=== PATIENT | female | born 1960 | race Caucasian/White ===

== ENCOUNTER → 2017-10-30 09:36 | Outpatient (CLI) | payer MEDICARE, SELFPAY ==
[2017-10-30 10:18] LABS: Add Manual Diff / Slide Review NO; Basophils Percent Auto 0.6 % (0-2); Eosinophils Percent Auto 3.3 % (2-4); Hematocrit 46.3 % (36-46); Hemoglobin 15.3 g/dL (12.0-16.0); Lymphocytes Percent Auto 33.3 % (25-40); Mean Corpuscular HGB Conc 33.1 % (30-36); Mean Corpuscular Hemoglobin 32.6 PG (26-34); Mean Corpuscular Volume 98.6 fL (80-100); Monocytes Percent Auto 9.3 % (3-14); Neutrophils Absolute Auto 3600 /uL (3000-5900); Neutrophils Percent Auto 53.5 % (50-75); Platelet Count 228 X10^3/uL (150-400); Red Cell Distribution Width 12.8 % (11.6-14.8); White Blood Cell Count 6.7 X10^3/uL (4.5-11.0)
[2017-10-30 10:35] LABS: Alanine Aminotransferase 36 IU/L (9-52); Albumin 4.4 g/dL (3.5-5.0); Albumin Globulin Ratio 1.3 (1.0-2.8); Alkaline Phosphatase 57 U/L (38-126); Aspartate Aminotransferase 47 IU/L (14-36); BUN Creatinine Ratio 32.9 (6-22); Bilirubin Total 0.7 mg/dL (0.2-1.3); Blood Urea Nitrogen 23 mg/dL (7-17); Calcium 9.3 mg/dL (8.4-10.2); Carbon Dioxide 38 mmol/L (22-32); Chloride 103 mmol/L (98-107); Cholesterol 213 mg/dL (140-199); Estimated Glomerular Filt Rate > 60.0 mL/min (>60); Globulin 3.3 g/dL (1.7-4.1); Glucose 109 mg/dL (70-100); HDL Cholesterol 86 mg/dL (40-60); HEMOLYSIS < 15 (0-50); LDL Cholesterol Calculated 113 mg/dL (<100); Potassium 4.2 mmol/L (3.4-5.1); Sodium 144 mmol/L (137-145); Total Protein 7.7 g/dL (6.3-8.2); Triglycerides 70 mg/dL (35-150)
== END ==
PROVIDERS: Visit Provider Physician Assistant
DX: E78.5 Hyperlipidemia, unspecified (principal); R53.83 Other fatigue
CPT/HCPCS: 36415; 80053; 80061; 85025

== ENCOUNTER 2019-05-13 14:52 | Day surgery (SDC) | payer MEDICARE, SELFPAY ==
--- NOTE | 2019-05-13 | PATH_ITS ---
[facility] Accession Number: [id number] . 01 Material submitted: . colon - 15 CM COLON POLYPS . 01 Clinical history: . SCREENING COLONOSCOPY . 02 Diagnosis: Colon at 15 cm, Polyps: Hyperplastic polyp x2. V 05/15/2019 1008 Local . 02 Electronically signed: . David Shirley MD, PhD, Pathologist NPI- [id number] . 01 Gross description: . 15 CM COLON POLYPS: Received in formalin are 2 fragment(s) of mendoza, soft tissue measuring 0.2 x 0.2 x 0.2 cm to 0.3 x 0.3 x 0.3 cm submitted entirely in 1 cassette(s) /[facility] [place], [place] 05/14/2019 1942 Local . 02 Pathologist provided ICD-10: K63.5 . 02 CPT . 308338 Performed at: 01 [facility] [address], [place], [place] [id number] MD Giuliano Gutierrez MD Phone: [phone] Performed at: [address] [facility] [address] [place], [place] [id number] MD Zayra James MD Phone: [phone]
[2019-05-13] MEDS: SODIUM CHLORIDE 0.9% 1,000 ML 200 ML IV (15:12)
[2019-05-13 15:45] VITALS: BP 110/73; PULSE 71; RESP 16; TEMP 36.5; O2SAT 97; BMI 15.5
[2019-05-13] MEDS: fentaNYL 250 MCG/5 ML INJ IV (16:50)
[2019-05-13] MEDS: MIDAZOLAM 5 MG/5 ML VIAL IV (16:50)
--- NOTE | 2019-05-13 16:52 | PM.OP.ENDO ---
Operative Date/Time/Diagnoses Date of procedure: 05/13/19 Time of procedure: 16:52 Pre-op diagnosis: abdominal pain and constipation Post-op diagnosis: other (extensive diverticulosis, evidence of seveve chronic diverticulitis and chronic scarring of the sigmoid colon, small hyperplastic appearing rectal polyps) Procedure & Clinicians Study performed: Colonoscopy, polypectomy x3 with cold forceps Same procedure as scheduled: Yes Indications: Abdominal pain, constipation Surgeon: Marta Patel Procedure Notes SCOAP/Timeout: Performed Procedure in detail: The patient was brought to the room and placed in left lateral decubitus position with all bony prominences padded. A time-out was performed and then the patient was given procedural sedation starting with 2 mg of Versed and [100] mcg of fentanyl. Total of 4 mg Versed and 200 micro g of fentanyl were given for the entire procedure. Vitals were monitored throughout the procedure and remained stable. Once adequately sedated the procedure was begun. A rectal exam was performed revealing [no abnormalities]. The colonoscope was then introduced to the rectum and advanced to the cecum in the usual fashion. [The sigmoid colon was extremely tortuous and scarred with stenotic areas secondary to chronic diverticulosis and evidence of prior episodes of diverticulitis.] Getting to the cecum was quite difficult because of this. The cecum was identified by the appendiceal orifice, the mucosal tri-fold, and the ileocecal valve. The scope was then retracted while rotating side to side and examining each mucosal fold. [Small hyperplastic appearing polyps were found in the rectum, and will removed with cold forceps.] At the conclusion of the procedure retroflexion was performed and [small grade 1-2 internal hemorrhoids without stigmata of bleeding were seen]. The scope was then withdrawn from the rectum the procedure was concluded. The patient tolerated the procedure well and was transferred to the PACU in stable condition. Scope withdrawal time: 11 Sedation minutes: 25 Findings: diverticulitis (Chronic), diverticulosis and polyp (Several small polyps in the rectum at 15 cm) Specimen(s): other (Rectal polyp) Complications: none Post-procedure Recommendations: Colonscopy in 10 years (So long as pathology is non neoplastic) Plan for aftercare: Strongly recommend the patient use a fiber supplement such as Metamucil or Benefiber daily to reduce the risk of worsening diverticulosis and diverticulitis. She may at some point need a sigmoid colectomy for her severe scarring from diverticulitis. Follow up: as needed Disposition: PACU
[2019-05-13 16:57] VITALS: BP 119/73; PULSE 69; RESP 11; TEMP 36.3; O2SAT 94
[2019-05-13 17:02] VITALS: BP 122/74; PULSE 65; RESP 10; O2SAT 93
[2019-05-13 17:06] VITALS: BP 119/79; PULSE 65; RESP 12; O2SAT 93
[2019-05-13 17:12] VITALS: BP 133/82; PULSE 66; RESP 10; O2SAT 94
[2019-05-13 17:14] VITALS: BP 125/82; PULSE 66; RESP 12; TEMP 36.3; O2SAT 94
--- NOTE | 2019-05-16 06:29 | P.HP_ITS ---
History of Present Illness History of Present Illness Date Patient Seen: 05/13/19 Time Patient Seen: 15:30 Chief complaint: [id number] SCREENING COLONOSCOPY Narrative: This is a 58-year-old woman who has a history of chronic constipation, a colonoscopy in 2012 which showed diverticulosis and some polyps, and was recommended to have a follow-up colonoscopy within 3 years. She has recently been having some worsening abdominal pain, and is here for her follow- up colonoscopy. She denies any melena, hematochezia, or unexplained weight loss. ROS: Thirteen system review is otherwise negative other than as mentioned in scanned in questionnaire, and in HPI. PE: GENERAL: Well groomed and cooperative. Appears stated age. Answers questions promptly and appropriately. Vital signs noted. HENT: Normocephalic, atraumatic. Hearing intact. Oral mucosa is pink and moist. EYES: Conjunctiva pink, sclera white, no periorbital swelling. CARDIOVASCULAR: Regular rate. No pedal edema. RESPIRATORY: Non-tachypneic, breathing comfortably on room air. GASTROINTESTINAL: Abdomen soft and non-distended GENITALURINARY: No flank tenderness. MUSCULOSKELETAL: Equal tone and mass bilaterally. SKIN: Warm, dry, soft, appropriate color for ethnicity. No other lesions, rashes, or wounds. NEURO: Alert and Oriented X 3. No gross sensory deficits, or cognitive issues. PSYCH: Appropriate affect and mood. Patient History Medical History Arthritis (Acute) Asthma (Chronic Unknown) Cervical spine disease (Chronic Unknown) Colon polyps (Resolved Unknown) Constipation (Acute) Degenerative disc disease, lumbar (Chronic Unknown) Loose, teeth (Acute) Migraines (Chronic Unknown) Neck pain (Acute) Nephritis (Acute) Neuropathy (Acute) Osteoarthritis (Chronic Unknown) Restless leg syndrome (Chronic Unknown) Shoulder pain (Acute) UTI (urinary tract infection) (Acute) Wears glasses (Acute) Surgical History H/O arthroscopy of shoulder (Resolved ~1999) History of carpal tunnel repair Status post appendectomy Status post tubal ligation Family & Social History Family History Father No problems noted. Mother No problems noted. Social History: household members spouse Tobacco & Substance use: Tobacco type cigarettes Smoking Status Current every day smoker alcohol intake former Substance Use Type does not use Meds Home Medications and Allergies Home Medications Medication Instructions Recorded Confirmed Type [HERBAL LOTION] TOPICAL PRN PRN #0 06/28/16 03/11/19 History Disabled Parking Permit #1 ea 01/29/18 02/26/19 Rx ulmvkbj-rfhxymkbfnvzv-ivfngjry 250 1 tab PO Q4-6H PRN 12/11/18 05/13/19 History mg-250 mg-65 mg tablet gabapentin 300 mg capsule 600 mg PO HS #180 cap 12/11/18 05/13/19 Rx hydrocodone 5 mg-acetaminophen 325 0.5 - 1 tab PO QDAYP PRN #30 tab 12/11/18 05/13/19 Rx mg tablet sumatriptan succinate 50 mg tablet 50 mg PO Q2-4H PRN 12/11/18 05/13/19 History ondansetron HCl 8 mg tablet 8 mg PO BID PRN #60 tab 01/07/19 05/13/19 Rx albuterol sulfate 90 mcg/actuation 2 puff INHALATION Q4HP PRN #3 ea 02/25/19 05/13/19 Rx aerosol inhaler baclofen 10 mg tablet 10 mg PO QDAYP PRN #30 tab 04/21/19 05/13/19 Rx Allergies Allergy/AdvReac Type Severity Reaction Status Date / Time NSAIDS (Non-Steroidal AdvReac Intermediate UTI Verified 05/13/19 15:43 Anti-Inflamma [NSAIDS (NON-STEROIDAL ANTI-INFLAMMA] Exam Vital Signs (past 8 hours): Oxygen Delivery Method Room Air Assessment & Plan Assessment and plan (1) Personal history of colonic polyps: Current visit: No Status: Acute (2) Diverticulosis large intestine w/o perforation or abscess w/o bleeding: Problem details: Extensive per colonoscopy 05/13/19 Current visit: No Status: Chronic Assessment & Plan narrative: Risks and benefits of colonoscopy were discussed with the patient including risk of bleeding, perforation, need for additional procedures. The patient desires to proceed with her colonoscopy procedure. Time Spent With Patient Time with patient: 15-24 minutes Quality VTE Deep Vein Thrombosis/Pulmonary Embolism Present on Admission: No
== END 2019-05-13 17:38 | disposition home or self-care (01) ==
PROVIDERS: PCP Physician Assistant; Visit Provider Surgery
PROC: 0DJD8ZZ Inspection of Lower Intestinal Tract, Via Natural or Artificial Opening Endoscopic (ICD-10-PCS; CPT 45378; principal; 2019-05-13 16:00)
DX: R10.9 Unspecified abdominal pain (principal); K59.00 Constipation, unspecified; F17.210 Nicotine dependence, cigarettes, uncomplicated; K57.30 Diverticulosis of large intestine without perforation or abscess without bleeding; Z86.010 Personal history of colon polyps; K64.0 First degree hemorrhoids; K63.5 Polyp of colon
CPT/HCPCS: 45380; 99152; 99153; J2250; J3010

== ENCOUNTER → 2019-05-24 08:25 | Outpatient (CLI) | payer MEDICARE, SELFPAY ==
[2019-05-24 08:36] LABS: Bacteria Urine None Seen
[2019-05-24 09:08] LABS: Add Manual Diff / Slide Review NO; Basophils Absolute Auto 0 /uL (0-100); Basophils Percent Auto 0.7 % (0-2); Eosinophils Absolute Auto 200 /uL (0-450); Eosinophils Percent Auto 2.5 % (2-4); Hemoglobin 14.2 g/dL (12.0-16.0); Lymphocytes Absolute Auto 1900 /uL (1100-4500); Lymphocytes Percent Auto 30.5 % (25-40); Mean Corpuscular HGB Conc 33.7 % (30-36); Mean Corpuscular Hemoglobin 33.1 PG (26-34); Mean Corpuscular Volume 98.3 fL (80-100); Monocytes Absolute Auto 500 /uL (0-900); Monocytes Percent Auto 8.8 % (3-14); Neutrophils Absolute Auto 3600 /uL (1500-7000); Neutrophils Percent Auto 57.5 % (50-75); Platelet Count 209 X10^3/uL (150-400); Red Blood Cell Count 4.28 X10^6/uL (4.0-5.2); Red Cell Distribution Width 12.6 % (11.6-14.8); White Blood Cell Count 6.2 X10^3/uL (4.5-11.0)
[2019-05-24 09:10] LABS: Appearance Urine UA CLEAR; Bilirubin Urine UA NEGATIVE (NEGATIVE); Color Urine UA YELLOW; Glucose Urine UA NEGATIVE (Negative); Ketones Urine UA NEGATIVE (NEGATIVE); Leukocyte Esterase Urine UA 1+ (NEGATIVE); Nitrite Urine UA NEGATIVE (Negative); Occult Blood Urine UA 1+ (Negative); Protein Urine UA NEGATIVE (Negative); Specific Gravity Urine UA 1.015 (1.000-1.035); Urobilinogen Urine UA 0.2 E.U./dL (0.2)
[2019-05-24 09:25] LABS: Culture Indicated Urine Specimen Cultured; RBC Urine 1-5/HPF (0-5/HPF); Squamous Epithelial Cell Urine 0-1 /HPF (0-5/HPF); WBC Urine 1-5/HPF (0-5/HPF)
[2019-05-24 09:50] LABS: Alanine Aminotransferase 19 IU/L (<35); Albumin 4.2 g/dL (3.5-5.0); Albumin Globulin Ratio 1.4 (1.0-2.8); Alkaline Phosphatase 65 U/L (38-126); Aspartate Aminotransferase 35 IU/L (14-36); Bilirubin Total 0.4 mg/dL (0.2-1.3); Blood Urea Nitrogen 21 mg/dL (7-17); Calcium 9.3 mg/dL (8.4-10.2); Carbon Dioxide 32 mmol/L (22-32); Chloride 101 mmol/L (98-107); Cholesterol 177 mg/dL (140-199); Estimated Glomerular Filt Rate > 60.0 mL/min (>60); Glucose 102 mg/dL (70-100); HDL Cholesterol 71 mg/dL (40-60); HEMOLYSIS < 15 (0-50); LDL Cholesterol Calculated 95 mg/dL (<100); Potassium 3.9 mmol/L (3.4-5.1); Sodium 143 mmol/L (137-145); Total Protein 7.2 g/dL (6.3-8.2); Triglycerides 53 mg/dL (35-150)
== END ==
PROVIDERS: PCP Physician Assistant; Referring Provider Physician Assistant; Visit Provider Physician Assistant
DX: E78.5 Hyperlipidemia, unspecified (principal); G43.909 Migraine, unspecified, not intractable, without status migrainosus; R20.2 Paresthesia of skin; R53.83 Other fatigue; M54.5 Low back pain
CPT/HCPCS: 36415; 80053; 80061; 81001; 85025; 87086

== ENCOUNTER → 2019-09-20 13:48 | Outpatient (ROUT) | payer MEDICARE, SELFPAY ==
[2019-09-22 16:35] LABS: COVID19 Sendout Not Detected (Not Detected)
== END ==
PROVIDERS: PCP Internal Medicine; Visit Provider Physician Assistant
DX: J45.909 Unspecified asthma, uncomplicated (principal); R05 Cough; R50.9 Fever, unspecified; R51 Headache
CPT/HCPCS: 87635

== ENCOUNTER → 2019-09-29 11:26 | Outpatient (CLI) | payer MEDICARE, SELFPAY ==
--- NOTE | 2019-09-29 11:30 | DI.RAD.S_ITS ---
PROCEDURE: XR CERVICAL SPINE 4V OR 5V INDICATIONS: neck pain TECHNIQUE: 5 total views of the cervical spine were acquired, including bilateral oblique views. COMPARISON: [facility], , C-SPINE WITHOUT CONTRAST, 07/17/2016, 13:25. FINDINGS: Bones: No fractures or dislocations to the T2 level. Oblique images demonstrate no bony foraminal stenoses. There is mild retrolisthesis seen at the C5-C6 level. Moderate disc space narrowing is seen at C5-C6, with moderate to severe disc space narrowing at C6-C7. Endplate irregularity and sclerosis are seen, which are most prominent at C6-C7. There is reversal of the normal cervical lordosis seen, with the apex at this level. On oblique images, there is mild neural foraminal narrowing seen on the right at C3-C4 and C6-C7. On the left, there is mild neural foraminal narrowing seen at C2-C3 and C5-C6. Soft tissues: No prevertebral soft tissue swelling. The visualized lung apices are unremarkable. The visualized lung apices are unremarkable. IMPRESSION: Cervical spine degenerative changes are seen, which are most prominent at the C6-C7 level. Reversal of the normal cervical lordosis is seen. This is commonly observed in patients with muscular spasm. Dictated by: Aly Gonzalez M.D. on 09/29/2019 at 12:00 Approved by: Aly Gonzalez M.D. on 09/29/2019 at 12:03
== END ==
PROVIDERS: PCP Internal Medicine; Referring Provider Physical Medicine & Rehabilitation; Visit Provider Physical Medicine & Rehabilitation
DX: M54.2 Cervicalgia (principal); M47.22 Other spondylosis with radiculopathy, cervical region
CPT/HCPCS: 72050

== ENCOUNTER → 2019-10-14 17:28 | Outpatient (CLI) | payer MEDICARE, SELFPAY ==
--- NOTE | 2019-10-14 17:29 | DI.MRI.S_ITS ---
PROCEDURE: MR CERVICAL SPINE WO CON INDICATIONS: Cervical stenosis TECHNIQUE: Noncontrast sagittal T1 spin echo and T2 fast spin echo, sagittal STIR, foraminal oblique sagittal T2 fast spin echo, and axial gradient echo or T2 fast spin echo through the cervical spine. COMPARISON: None. FINDINGS: Image quality: Excellent. Alignment and Curvature: There is a straightening and bursal of the usual cervical lordosis. Approximately 2 mm anterolisthesis of C4 on C5 and 4 mm anterolisthesis of C5 on C6. Bone Marrow: There is no suspicious focus of marrow signal abnormality or bone marrow edema. Mild discogenic marrow signal changes are present at the endplates from C4-C5 through C6-C7. Spinal Cord: Visualized spinal cord has normal size and signal. No cerebellar tonsillar herniation. Paraspinous Soft Tissues: No paravertebral masses. Prevertebral soft tissues are normal in thickness. C2-C3: No spinal canal or neural foraminal stenosis. C3-C4: No spinal canal stenosis. Facet and vertebral hypertrophy contribute to mild right neural foraminal narrowing. C4-C5: Posterior disc osteophyte complex flattens the ventral thecal sac without spinal canal stenosis or mass effect upon the cord. Facet and uncovertebral hypertrophy contribute to mild bilateral neural foraminal stenosis. C5-C6: Posterior disc osteophyte complex flattens and indents the ventral cord. No cord signal abnormality. Facet uncovertebral hypertrophy contribute to mild left greater than right neural foraminal stenosis. C6-C7: Posterior discussion a complex likely flattens the ventral cord. Facet uncovertebral hypertrophy contribute to moderate left and mild right neural foraminal stenosis. C7-T1: No spinal canal or neural foraminal stenosis. IMPRESSION: Generative changes in the mid cervical spine, most pronounced at C5-C6 and C6-C7. Dictated by: Andres Alvarado M.D. on 10/15/2019 at 8:45 Approved by: Andres Alvarado M.D. on 10/15/2019 at 8:48
== END ==
PROVIDERS: PCP Internal Medicine; Referring Provider Physical Medicine & Rehabilitation; Visit Provider Physical Medicine & Rehabilitation
DX: M48.02 Spinal stenosis, cervical region (principal); M47.812 Spondylosis without myelopathy or radiculopathy, cervical region
CPT/HCPCS: 72141

== ENCOUNTER → 2019-12-29 09:48 | Outpatient (CLI) | payer MEDICARE, SELFPAY ==
[2019-12-30 17:13] LABS: COVID19 Sendout Not Detected (Not Detect)
== END ==
PROVIDERS: PCP Internal Medicine; Visit Provider Nurse Practitioner
DX: Z11.59 Encounter for screening for other viral diseases (principal)
CPT/HCPCS: 87635

== ENCOUNTER 2020-01-01 09:29 | Outpatient (CLI) | payer MEDICARE, SELFPAY ==
[2020-01-01] VITALS (8 sets, daily range): BP systolic 112–174; BP diastolic 74–95; PULSE 73–88; RESP 11–21; TEMP 36.3; O2SAT 91–98
--- NOTE | 2020-01-01 09:33 | DI.RAD.S_ITS ---
PROCEDURE: PAIN C/T INTERLAMINAR INJECT INDICATIONS: SPINAL STENOSIS COMPARISON: None. FINDINGS: Fluoroscopic spot filming was performed to verify placement of spinal needles at the C6-C7 level(s), as labeled on the films. Appropriate location(s) of the needle tip(s) was confirmed by injection of iodinated contrast. Dictated by: Fidencio Gomez M.D. on 01/01/2020 at 13:04 Approved by: Fidencio Gomez M.D. on 01/01/2020 at 13:08
[2020-01-01] MEDS: MIDAZOLAM 5 MG/5 ML VIAL IV (10:37)
[2020-01-01] MEDS: fentaNYL 100 MCG/2 ML INJ 50 MCG IV (10:37)
[2020-01-01] MEDS: BUPIVACAINE 0.25% (PF) VIAL 2 ML INJ (10:44)
[2020-01-01] MEDS: DEXAMETHASONE 10 MG/ML VIAL 30 MG INJ (10:45)
[2020-01-01] MEDS: IOPAMIDOL 15 ML VIAL 3 ML INJ (10:45)
--- NOTE | 2020-01-01 10:52 | P.PCN_ITS ---
Date/Time/Diagnoses Date of procedure: 01/01/20 Time of procedure: 10:52 Pre-procedure diagnosis: 1. CERVICAL STENOSIS, 2. CERVICAL HNP WITH UPPER EXTREMITY RADICULAR FEATURES Post-procedure diagnosis: same Procedure Notes Procedure: 1. FLUORSCOPICALLY GUIDED CONTRAST CONTROLLED INTERLAMINAR EPIDURAL STEROID INJECTION - C6/7 TL NABEEL Indications: Fany is referred by Dr. Torres for treatment of Cervical HNP with Upper Extremity Paresthesias. Physician: Allen Rg Total Fluoroscopy time (seconds): 23 Total sedation minutes: 12 Complications: none Procedure in detail & Post-procedure care: FINDINGS Cervical Stenosis due to disc deterioration and nerve root irritation and nerve root irritation DESCRIPTION OF PROCEDURE Fluoroscopically guided, contrast-controlled C6/7 translaminar epidural steroid injection with conscious sedation. Following review of allergy and review of potential side effects and complications, including, but not necessarily limited to, infection, allergic reaction, local tissue breakdown, temporary as well as permanent nerve injury, stroke, paralysis, and possible , the patient indicated that patient understood and agreed to proceed. An informed consent document was signed by the patient, witnessed by a nurse, and placed in the patient's chart. Additionally, other treatment options including modalities, medications, and physical therapy were reviewed with the patient. After review of previous anaesthesic history and IV conscious sedation the patient was deemed safe to proceed with today?s procedure with IV conscious sedation as ASA class II designation. Safety time-out was performed to confirm patient ID, procedure to be performed and site of procedure. IV sedation was accomplished with a combination of 2mg of Versed and 50mcg of Fentanyl administered by the RN after DO order, titrated to patient comfort during the course of the procedure while the patient remained responsive to all verbal commands. In the prone position, following sterile prep and drape of the cervical region, the C6/7 translaminar space was identified fluoroscopically. The skin was anesthetized via a 25-gauge 1.5-inch needle with 1% lidocaine solution. At this point, a 25-gauge, 2.5-inch short bevel spinal needle was atraumatically introduced and advanced under fluoroscopic guidance into epidural space at the C6/7 translaminar space. Depth was confirmed on lateral view. Radiological data, including multiple fluoroscopic views of the cervical spine, reveal a spinal needle at the C6/7 translaminar space. Lateral views then show placement of the needle in the epidural space. Subsequent views show contrast material flowing superiorly and inferiorly in the epidural space. DSA fluoroscopy with live contrast injection, once again, confirmed no vascular or intrathecal uptake. At this point, using loss of resistance technique with saline and air, the epidural space was entered. Following negative aspiration, injection of appr oximately 1.5 cc of Isovue-200 with live fluoroscopy in the AP view confirmed epidural flow in the epidural space without vascular or intrathecal uptake observed. Subsequently, a test dose of 1 cc of 1% lidocaine solution was injected and patient was observed for two minutes without signs or symptoms of complications, including abdominal pain, shortness of breath, bilateral upper or lower extremity weakness, nausea and vomiting, prior to steroid injection. At this point, 2cc or 20mg of dexamethasone was then injected without incident. The patient tolerated the procedure well without signs or symptoms of complications prior to being transferred to the recovery area for further monitoring, The patient was then transferred to the recovery area where they were observed for an appropriate period of time after the injection. The patient reported a VAS score of 6 prior to the procedure and a post-procedure VAS of 0. POST OP INSTRUCTIONS The patient was provided a Pain Log to continue to record their response to the target-specific procedure prior to follow-up visit with the referring provider. Additionally, specific post-injection care instructions and a contact number to our office were provided if concerns arise regarding possible complications associated with the procedure are suspected.
== END 2020-01-01 11:22 | disposition home or self-care (01) ==
PROVIDERS: PCP Internal Medicine; Referring Provider Physical Medicine & Rehabilitation; Visit Provider Physical Medicine & Rehabilitation
DX: M48.02 Spinal stenosis, cervical region (principal); M50.123 Cervical disc disorder at C6-C7 level with radiculopathy
CPT/HCPCS: 62321; 99152; J1100; J2250; J3010

== ENCOUNTER → 2020-03-29 09:22 | Outpatient (CLI) | payer MEDICARE, SELFPAY ==
[2020-03-29 11:10] LABS: COVID19 -Nasal RAPID Negative (Negative)
== END ==
PROVIDERS: PCP Internal Medicine; Visit Provider Physician Assistant
DX: Z11.59 Encounter for screening for other viral diseases (principal)
CPT/HCPCS: 87635

== ENCOUNTER 2020-03-30 09:10 | Outpatient (CLI) | payer MEDICARE, SELFPAY ==
[2020-03-30] VITALS (8 sets, daily range): BP systolic 143–187; BP diastolic 74–98; PULSE 62–72; RESP 12–22; TEMP 36.4; O2SAT 92–100
--- NOTE | 2020-03-30 09:12 | DI.RAD.S_ITS ---
PROCEDURE: PAIN C/T FACET INJ/BLK 1ST L INDICATIONS: SPINAL STENOSIS COMPARISON: [facility], XA, PAIN C/T INTERLAMINAR INJECT, 01/01/2020, 10:41. [facility], MR, MR CERVICAL SPINE WO CON, 10/14/2019, 17:49. [facility], CR, XR CERVICAL SPINE 4V OR 5V, 09/29/2019, 11:23. [facility], MR, C-SPINE WITHOUT CONTRAST, 07/17/2016, 13:25. FINDINGS: Fluoroscopic spot filming was performed to verify placement of spinal needles at the left C5-C6 and C6-C7 facet level(s). Appropriate location(s) of the needle tip(s) was confirmed by injection of iodinated contrast. IMPRESSION: Fluoroscopy for pain management. Dictated by: Nicolas Santamaria M.D. on 03/30/2020 at 11:06 Approved by: Nicolas Santamaria M.D. on 03/30/2020 at 11:07
[2020-03-30] MEDS: fentaNYL 100 MCG/2 ML INJ 50 MCG IV (10:21)
[2020-03-30] MEDS: MIDAZOLAM 5 MG/5 ML VIAL IV (10:21)
[2020-03-30] MEDS: BUPIVACAINE 0.5% (PF) VIAL 5 ML INJ (10:27)
[2020-03-30] MEDS: DEXAMETHASONE 10 MG/ML VIAL 20 MG INJ (10:27)
[2020-03-30] MEDS: IOPAMIDOL 15 ML VIAL 3 ML INJ (10:28)
--- NOTE | 2020-03-30 10:35 | P.PCN_ITS ---
Date/Time/Diagnoses Date of procedure: 03/30/20 Time of procedure: 10:35 Pre-procedure diagnosis: 1. FACET ARTHROPATHY 2. AXIAL NECK PAIN Post-procedure diagnosis: same Procedure Notes Procedure: 1. FLUOROSCOPICALLY GUIDED, CONTRAST-CONTROLLED LEFT C5/6 AND C6/7 FACET JOINT INJECTIONS WITH CONSCIOUS SEDATION. Indications: Fany is referred by Dr. Torres for treatment of Axial Neck Pain Physician: Allen Rg Total Fluoroscopy time (seconds): 6 Total sedation minutes: 12 Complications: none Procedure in detail & Post-procedure care: DESCRIPTION OF PROCEDURE Fluoroscopically guided, contrast-controlled left C5/6 and C6/7 facet joint injections with conscious sedation. Following review of allergy and review of potential side effects and complications, including, but not necessarily limited to, infection, allergic reaction, local tissue breakdown, stroke, temporary or permanent nerve injury and paralysis, the patient indicated that the patient understood and agreed to proceed. An informed consent document was signed by the patient, witnessed by a nurse, and placed in the patient's chart. Additionally, other treatment options including medications, modalities, and physical therapy were reviewed with the patient. After review of previous anaesthesic history and IV conscious sedation the patient was deemed safe to proceed with today?s procedure with IV conscious sedation as ASA class II designation. Safety time-out was performed to confirm patient ID, procedure to be performed and site of procedure. IV sedation was accomplished with a combination of 2mg of Versed and 50mcg of Fentanyl was administered by the RN after DO order, titrated to patient comfort during the course of the procedure while the patient remained responsive to all verbal commands In the prone position, following sterile prep and drape of the cervical spine region, the posterior aspect of the left C5/6 and C6/7 facet joints were identified fluoroscopically. The skin was anesthetized via a 25-gauge 1.5-inch needle with 1% lidocaine solution into the corresponding facet joints. At this point, a 25-gauge 2.5-inch spinal needle was atraumatically introduced and advanced under fluoroscopic guidance into the corresponding facet joints. Following negative aspiration, injections of approximately 0.2cc of Isovue 200 confirmed interarticular placement without vascular uptake. At this point, a total of 1cc including 0.5cc or 5mg of dexamethasone combined with 0.5cc of 1% lidocaine solution was injected without complication into each of the corresponding facet joints. The procedure tolerated the procedure well without signs or symptoms of complications prior to transfer to the recovery area continued monitoring without incident. The patient was then transferred to the recovery area where they were observed for an appropriate period of time after the injection. The patient reported a VAS score of 7 prior to the procedure and a post- procedure VAS of 1. POST OP INSTRUCTIONS They were provided a Pain Log to continue to record their response to the target-specific procedure prior to their follow-up visit with their referring physician. Additionally, specific post-injection care instructions and a contact number to our office were provided if concerns arise regarding possible complications associated with the procedure are suspected.
== END 2020-03-30 10:51 | disposition home or self-care (01) ==
LOC: RAD 09:10
PROVIDERS: PCP Internal Medicine; Referring Provider Physical Medicine & Rehabilitation; Visit Provider Physical Medicine & Rehabilitation
DX: M47.812 Spondylosis without myelopathy or radiculopathy, cervical region (principal); M54.2 Cervicalgia
CPT/HCPCS: 64490; 64491; 99152; J1100; J2250; J3010

== ENCOUNTER → 2020-11-10 08:50 | Outpatient (CLI) | payer MEDICARE, SELFPAY ==
[2020-11-10 09:59] LABS: Add Manual Diff / Slide Review NO; Basophils Absolute Auto 0 /uL (0-100); Basophils Percent Auto 0.7 % (0-2); Eosinophils Absolute Auto 200 /uL (0-450); Eosinophils Percent Auto 3.5 % (2-4); Hematocrit 44.4 % (36-46); Hemoglobin 14.7 g/dL (12.0-16.0); Lymphocytes Absolute Auto 2200 /uL (1100-4500); Lymphocytes Percent Auto 41.5 % (25-40); Mean Corpuscular HGB Conc 33.2 % (30-36); Mean Corpuscular Volume 99.4 fL (80-100); Monocytes Absolute Auto 500 /uL (0-900); Monocytes Percent Auto 9.6 % (3-14); Neutrophils Absolute Auto 2400 /uL (1500-7000); Neutrophils Percent Auto 44.7 % (50-75); Platelet Count 197 X10^3/uL (150-400); Red Blood Cell Count 4.47 X10^6/uL (4.0-5.2); Red Cell Distribution Width 12.7 % (11.6-14.8); White Blood Cell Count 5.3 X10^3/uL (4.5-11.0)
[2020-11-10 10:08] LABS: Alanine Aminotransferase 26 IU/L (<35); Albumin 3.9 g/dL (3.5-5.0); Albumin Globulin Ratio 1.3 (1.0-2.8); Alkaline Phosphatase 52 U/L (38-126); Aspartate Aminotransferase 39 IU/L (14-36); BUN Creatinine Ratio 29.2 (6-22); Bilirubin Total 0.4 mg/dL (0.2-1.3); Blood Urea Nitrogen 19 mg/dL (7-17); Calcium 8.8 mg/dL (8.4-10.2); Carbon Dioxide 35 mmol/L (22-32); Chloride 103 mmol/L (98-107); Cholesterol 198 mg/dL (140-199); Estimated Glomerular Filt Rate > 60.0 mL/min (>60); Globulin 3.1 g/dL (1.7-4.1); Glucose 95 mg/dL (80-110); HDL Cholesterol 76 mg/dL (40-60); HEMOLYSIS < 15 (0-50); LDL Cholesterol Calculated 108 mg/dL (<100); Potassium 3.9 mmol/L (3.4-5.1); Sodium 142 mmol/L (137-145); Triglycerides 69 mg/dL (35-150)
[2020-11-10 11:01] LABS: TSH w/ Reflex to FT4 4.45 uIU/mL (0.47-4.68)
== END ==
PROVIDERS: PCP Internal Medicine; Referring Provider Internal Medicine; Visit Provider Internal Medicine
DX: E46 Unspecified protein-calorie malnutrition (principal); I10 Essential (primary) hypertension; J45.909 Unspecified asthma, uncomplicated; Z13.220 Encounter for screening for lipoid disorders
CPT/HCPCS: 36415; 80053; 80061; 84443; 85025

== ENCOUNTER → 2020-11-24 11:52 | Outpatient (CLI) | payer MEDICARE, SELFPAY ==
--- NOTE | 2020-11-24 12:03 | DIET.PN ---
Dietary Progress Note Assessment: 60y [address] visit for Protein Calorie Malnutrition (BMI 15.3) per recommendation from her PCP. 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 Weight and Health Hx: Pt has never had to watch weight or worry about calorie counting, was able to maintain healthy weight without too much concern. Pt has a few aunts who are thin like her. Pt lost significant weight 2y ago after she and her tried an elimination type diet for longevity. Pt did lose weight, but did not. This along with dental issues, reduced appetite, and severe diverticulosis have been limitations to her ability to regain weight to a healthy BMI. 04/2019 colonoscopy showing:extensive diverticulosis, evidence of severe chronic diverticulitis and chronic scarring of the sigmoid colon with reccs to have sigmoid colon resection if continued issue. Pt had 2 partials installed this spring so having easier time chewing foods. HT: 5'6 WT: 95# UBW: 120-130# BMI: 15.3 (severe) Labs: BUN 19 H dinner last night: mashed potatoes, teriyaki chicken, and a cookie with 8oz metamucil had to skip breakfast this morning because was in pain metamucil taken every day is helpful if not good enough, takes Dulcolax Usual Day: B: Activia low fat yogurt and applesauce or oatmeal or fruit smoothie c 2c tea L: hummus c [facility] low fat chips or pb sandwich c blueberries tries to have water bottle D: prefers meat and potatoes, is trying to lose weight so not eating red meat some snacks: cereal in evening A2 whole milk uses cannabis in vaporizer to stimulate appetite in evening, helps Foods she does not tolerate: steak, roast, corn, whole nuts and seeds Nutrition Diagnosis: Severe Chronic Protein Calorie Malnutrition r/t low appetite and difficulty eating aeb BMI 15.3 x2y, pt had dentition issues and large intestine issues limiting intake, pt uses cannabis as appetite stimulant, intake several low fat foods during day. Interventions: 1. Discussed and educated pt on increased protein and healthy fat intake to support healthy weight gain into a less severe BMI. Collaborated c pt on usual intake and modifying to promote weight gain. Pt will switch to full fat yogurt. Provided smoothie recipe formula, pt will alter smoothie to incorporate more high kcal/high pro ingredients (nut butter, full fat yogurt, ground seeds). Pt will eliminate low-fat, low-kcal versions of foods for original strength. Pt will liberally use olive oil and avocado oil in cooking and dressing foods. Pt will eat 3 meals and 2 snacks daily. Pt will increase protein serving by 1oz at each meal. 2. Discussed all strategies and interventions with pt barriers and health conditions in mind. Monitoring/Evaluations: phone check in x1mo to assess progress as pt has limited ability to pay for nutrition service out of pocket.
== END ==
PROVIDERS: PCP Internal Medicine; Referring Provider Internal Medicine; Visit Provider Internal Medicine
DX: E43 Unspecified severe protein-calorie malnutrition (principal); Z68.1 Body mass index [BMI] 19.9 or less, adult
CPT/HCPCS: 97802

== ENCOUNTER → 2021-01-27 10:04 | Outpatient (CLI) | payer MEDICARE, SELFPAY ==
[2021-01-27 10:49] LABS: COVID19 -Nasal RAPID Negative (Negative)
== END ==
PROVIDERS: PCP Internal Medicine; Visit Provider Internal Medicine
DX: Z20.822 Contact with and (suspected) exposure to COVID-19 (principal); J02.9 Acute pharyngitis, unspecified
CPT/HCPCS: 87635

== ENCOUNTER → 2022-05-04 12:11 | Outpatient (CLI) | payer MEDICARE, SELFPAY ==
[2022-05-04 13:08] LABS: Appearance Urine UA CLEAR; Bilirubin Urine UA NEGATIVE (NEGATIVE); Color Urine UA ORANGE; Glucose Urine UA TRACE g/dL (Negative); Ketones Urine UA NEGATIVE (NEGATIVE); Leukocyte Esterase Urine UA 1+ (NEGATIVE); Nitrite Urine UA POSITIVE (Negative); Occult Blood Urine UA 2+ (Negative); Protein Urine UA 2+ (Negative)
[2022-05-04 13:22] LABS: Bacteria Urine Moderate (10-30); Culture Indicated Urine Specimen Cultured; RBC Urine 1-5/HPF (0-5/HPF); Squamous Epithelial Cell Urine 1-5 /HPF (0-5/HPF); WBC Urine 10-30/HPF (0-5/HPF)
== END ==
PROVIDERS: PCP Internal Medicine; Referring Provider Internal Medicine; Visit Provider Internal Medicine
DX: R30.0 Dysuria (principal); R35.0 Frequency of micturition; R39.9 Unspecified symptoms and signs involving the genitourinary system
CPT/HCPCS: 81001; 87077; 87086; 87186

== ENCOUNTER → 2022-08-10 12:26 | Outpatient (CLI) | payer MEDICARE, SELFPAY ==
[2022-08-10 12:53] LABS: Alanine Aminotransferase 23 IU/L (<35); Albumin 4.3 g/dL (3.5-5.0); Albumin Globulin Ratio 1.2 (1.0-2.8); Alkaline Phosphatase 45 U/L (38-126); Aspartate Aminotransferase 31 IU/L (14-36); BUN Creatinine Ratio 27.7 (6-22); Bilirubin Total 0.4 mg/dL (0.2-1.3); Blood Urea Nitrogen 18 mg/dL (7-17); Carbon Dioxide 37 mmol/L (22-32); Chloride 99 mmol/L (98-107); Estimated Glomerular Filt Rate > 60 mL/min (>60); Globulin 3.6 g/dL (1.7-4.1); Glucose 117 mg/dL (80-110); HEMOLYSIS < 15 (0-50); Potassium 4.4 mmol/L (3.4-5.1); Sodium 140 mmol/L (137-145); Total Protein 7.9 g/dL (6.3-8.2)
== END ==
PROVIDERS: PCP Internal Medicine; Referring Provider Internal Medicine; Visit Provider Internal Medicine
DX: I10 Essential (primary) hypertension (principal); J45.20 Mild intermittent asthma, uncomplicated
CPT/HCPCS: 36415; 80053

== ENCOUNTER → 2022-10-20 11:46 | Outpatient (CLI) | payer MEDICARE, SELFPAY ==
--- NOTE | 2022-10-25 08:48 | PM.PFT.1 ---
Pulmonary Function Test Referral & Results Date Patient Seen: 10/20/22 Results: The spirometry demonstrates an FVC of 1.66 L which is 47% of predicted. The FEV1 was measured at 0.73 L which is 27% of predicted. The FEV1/FVC ratio was 44 which is 57% of predicted. Following the administration of bronchodilator there was a 60% improvement in FEV1 and a 211% improvement in FEF 25-75%. Lung volumes show an SVC of 2.61 L which is 81% of predicted. The diffusing capacity was measured at 12.07 which is 44% of predicted. No hemoglobin value was provided, so no correction for potential anemia could be made, if appropriate. The maximum voluntary ventilation was severely reduced Interpretation: This study demonstrates severe obstructive lung disease with FEV1 of less than 1 L. there is evidence of significant benefit following bronchodilator as noted above Lung volumes are probably normal There is a moderate reduction diffusing capacity suggesting the presence of disease at the capillary alveolar level
== END ==
PROVIDERS: PCP Family Medicine; Referring Provider Family Medicine; Visit Provider Family Medicine
DX: R06.02 Shortness of breath (principal); F17.200 Nicotine dependence, unspecified, uncomplicated; J98.8 Other specified respiratory disorders
CPT/HCPCS: 94060; 94726; 94729

== ENCOUNTER → 2023-01-19 09:00 | Outpatient (CLI) | payer MEDICARE, SELFPAY ==
[2023-01-19 09:34] LABS: Add Manual Diff / Slide Review NO; Basophils Absolute Auto 0 /uL (0-100); Basophils Percent Auto 0.7 % (0-2); Eosinophils Absolute Auto 200 /uL (0-450); Eosinophils Percent Auto 2.9 % (2-4); Hematocrit 45.7 % (36-46); Hemoglobin 15.3 g/dL (12.0-16.0); Lymphocytes Absolute Auto 2700 /uL (1100-4500); Lymphocytes Percent Auto 41.2 % (25-40); Mean Corpuscular HGB Conc 33.5 % (30-36); Mean Corpuscular Hemoglobin 33.1 PG (26-34); Mean Corpuscular Volume 98.9 fL (80-100); Monocytes Absolute Auto 600 /uL (0-900); Monocytes Percent Auto 8.6 % (3-14); Neutrophils Absolute Auto 3000 /uL (1500-7000); Neutrophils Percent Auto 46.6 % (50-75); Platelet Count 224 X10^3/uL (150-400); Red Blood Cell Count 4.62 X10^6/uL (4.0-5.2); Red Cell Distribution Width 13.3 % (11.6-14.8); White Blood Cell Count 6.5 X10^3/uL (4.5-11.0)
[2023-01-19 09:50] LABS: Alanine Aminotransferase 27 IU/L (<35); Albumin 4.4 g/dL (3.5-5.0); Albumin Globulin Ratio 1.3 (1.0-2.8); Alkaline Phosphatase 53 U/L (38-126); Aspartate Aminotransferase 34 IU/L (14-36); BUN Creatinine Ratio 28.6 (6-22); Bilirubin Total 0.5 mg/dL (0.2-1.3); Blood Urea Nitrogen 20 mg/dL (7-17); Calcium 9.3 mg/dL (8.4-10.2); Carbon Dioxide 35 mmol/L (22-32); Chloride 98 mmol/L (98-107); Cholesterol 231 mg/dL (140-199); Estimated Glomerular Filt Rate > 60 mL/min (>60); Globulin 3.4 g/dL (1.7-4.1); Glucose 113 mg/dL (80-110); HDL Cholesterol 86 mg/dL (40-60); HEMOLYSIS < 15 (0-50); LDL Cholesterol Calculated 125 mg/dL (<100); Sodium 139 mmol/L (137-145); Total Protein 7.8 g/dL (6.3-8.2); Triglycerides 99 mg/dL (35-150)
== END ==
PROVIDERS: PCP Family Medicine; Referring Provider Family Medicine; Visit Provider Family Medicine
DX: F17.200 Nicotine dependence, unspecified, uncomplicated (principal); I10 Essential (primary) hypertension; K62.5 Hemorrhage of anus and rectum
CPT/HCPCS: 36415; 80053; 80061; 85025

== ENCOUNTER 2023-09-13 09:02 | Inpatient (IN) | payer OTHER, SELFPAY ==
[2023-09-13] VITALS (84 sets, daily range): BP systolic 90–182; BP diastolic 56–98; PULSE 60–80; RESP 11–44; TEMP 32–38.1; O2SAT 42–99; BMI 16.2
--- NOTE | 2023-09-13 09:15 | ED.NEUROSD ---
HPI - Neuro Symptoms/Deficit General Chief Complaint: Shortness of Breath/Dyspnea Stated Complaint: stroke symptoms per pt Time Seen by Provider: 09/13/23 09:14 History of Present Illness HPI Narrative: Patient is a 62-year-old female history of emphysema has stopped smoking presents today with bilateral hand weakness. However she is found to be hypoxic with a O2 60%. According to PCP no on August 26 she started using trilogy and waiting for insurance to approve portable oxygen. She presents today with like hand twitching weakness. states that her color started changing she has a little bit blue last night and this morning. She is found to have O2 of 60% on room air. After reviewing records PCP office shows that she was 79% on room air on August 26 and 84% on August 22 she was 90% on 3 L nasal cannula. Patient reports that she is just waiting for her ox oxygen. She denies any sort of chest pain or shortness of breath. She gets very fatigued and tired. There was concern of stroke this morning with a hand weakness has been reports that maybe she had some facial droop as well. Otherwise has no complaints. She reports that she went for an outpatient EKG at [facility] yesterday. Related Data Home Medications Medication Instructions Recorded Confirmed [HERBAL LOTION] topical PRN PRN ##0 06/16/19 08/27/23 acetaminophen 325 mg tablet 325 mg PO ONCE PRN 06/15/22 08/27/23 (Tylenol) Previous Rx's Medication Instructions Recorded baclofen 10 mg tablet 10 mg PO BID for muscle spasm #180 04/04/23 tabs inhalational spacing device #1 ea 05/15/23 (BreatheRite MDI Spacer) acetaminophen 300 mg-codeine 15 mg 1 tab PO Q8H PRN pain #30 tabs 05/25/23 tablet gabapentin 300 mg capsule 600 mg (2 x 300 mg) PO HS #180 caps 06/13/23 (Neurontin) Ventolin HFA 90 mcg/actuation 2 puff inhalation Q4-6H PRN for 08/14/23 aerosol inhaler (albuterol sulfate) wheezing #36 grams fluticasone fur. 100 mcg-umeclid 1 inh inhalation DAILY #60 ea 08/23/23 62.5 mcg-vilant 25 mcg inhalat.powder (Trelegy Ellipta) oxygen concentrator #1 ea 08/23/23 portable oxygen concentrator #1 ea 08/27/23 Allergies Allergy/AdvReac Type Severity Reaction Status Date / Time diclofenac AdvReac Intermediate Reaction Verified 09/13/23 09:26 as soon as applied. Rash/Burning Sensation NSAIDS (Non-Steroidal AdvReac Intermediate UTI Verified 09/13/23 09:26 Anti-Inflamma [NSAIDS (NON-STEROIDAL ANTI-INFLAMMA] Patient History Medical History (Updated 09/13/23 @ 13:08 by Florence Holland DO) Encounter for initial annual wellness visit (AWV) in Medicare patient COVID-19 Malnutrition Cervical radiculopathy Facet arthropathy, cervical Cervical stenosis of spinal canal Loose, teeth Wears glasses Neuropathy Nephritis Constipation Neck pain Shoulder pain Arthritis Restless leg syndrome (Unknown) Osteoarthritis (Unknown) Degenerative disc disease, lumbar (Unknown) Migraines (Unknown) Asthma (Unknown) Cervical spine disease (Unknown) Surgical History H/O arthroscopy of shoulder (~1999) Status post appendectomy History of carpal tunnel repair Status post tubal ligation Family History Father No problems noted. Mother No problems noted. Social History household members: spouse Smoking Status: Former smoker (2 Cigarettes since Covid 05/2022. ) Tobacco: How many years used: 40 second hand exposure: No alcohol intake: former substance use type: marijuana Smoking Status: Former smoker (2 Cigarettes since Covid 05/2022. ) Substance Use Type: does not use Exam Initial Vital Signs Initial Vital Signs: Vital Signs Temperature 97.9 F 09/13/23 09:05 Pulse Rate 80 09/13/23 09:05 Respiratory Rate 22 09/13/23 09:05 Blood Pressure 139/84 09/13/23 09:05 Pulse Oximetry 60 L 09/13/23 09:05 Oxygen Delivery Method Room Air 09/13/23 09:05 GENERAL: Alert pleasant 62-year-old slightly [place] HEENT: Head atraumatic,EOMI, pupils reactive, face symmetric, moist mucous membranes CARDIOVASCULAR: Regular rate and rhythm without murmurs, rubs or gallops. RESPIRATORY: Decreased breath sounds bilaterally no significant respiratory distress speaks in full sentences ABDOMEN: Soft, nontender. Normoactive bowel sounds all 4 quadrants. No guarding or rebound. EXTREMITIES: Normal range of motion, no clubbing or edema. Neurovascularly intact NEUROLOGICAL: Alert and oriented x4.Normal gait and speech. Cranial nerves II through XII grossly intact. SKIN: Warm, dry, no laceration, no petechiae, no rashes or lesions. Procedures Intubation Time out performed: Yes sedative: other paralytic: Rocuronium Laryngoscope: other (glide scope) ET Tube Size: 7.5 Tube Secured Depth (cm): 21 Tube Secured Location: teeth Tube Placement Confirmation: Visualized tube passing through cords, Equal breath sounds bilaterally, No breath sounds over epigastrium, Confirmation by capnometry and Chest Xray Patient Tolerated Procedure: Well and No complications Intubation Complications: none Course Orders Ordered: ED Orders 09/13/23 10:05 CT abdomen pelvis w con Stat CT angio chest PE protocol Stat US abdomen limited Stat 09/13/23 10:32 High flow/High humidity nasal STAT 09/13/23 11:06 ABG [Arterial Blood Gas] Stat 09/13/23 11:15 BiPAP Ventilatory Support RT PROTOCOL 09/13/23 12:03 Urine Microscopic Stat 09/13/23 12:05 CMP [Comprehensive Metabolic Panel] Stat Trop I [Troponin I] Stat 09/13/23 12:35 ABG [Arterial Blood Gas] Stat Acetaminophen (Acetaminophen 325 Mg Tablet) 650 mg PO Q6H PRN PRN Reason: Fever/Mild Pain (1-3) Enoxaparin Sodium (Enoxaparin 40 Mg/0.4 Ml Syringe) 40 mg SUBCUT DAILY REYNA Propofol (Propofol) 1,000 mg in 100 mls @ 1.334 mls/hr IV TITRATE REYNA; Protocol Last Titration: 09/13/23 16:04 Dose: 17 mcg/kg/min, 4.534 mls/hr Documented By: Titration: 09/13/23 15:49 Dose: 10.12 mcg/kg/min, 2.7 mls/hr Documented By: Admin: 09/13/23 15:20 Dose: 5 mcg/kg/min, 1.334 mls/hr Documented By: RLS Fentanyl 1,000 mcg/ Sodium (Chloride) 250 mls @ 7.779 mls/hr IV TITRATE REYNA; Protocol Last Admin: 09/13/23 15:46 Dose: Not Given Documented By: RLS Naloxone HCl (Naloxone 0.4 Mg/Ml Vial) 0.2 mg IV Q2MIN PRN PRN Reason: Opiate Reversal Ondansetron HCl (Ondansetron 4 Mg/2 Ml Inj) 4 mg IV Q8HR PRN PRN Reason: Nausea And Vomiting Discontinued Medications Albuterol/Ipratropium (Albuterol/Ipratropium 3 Ml Ampul) 3 ml INH NOW ONE Stop: 09/13/23 09:29 Last Admin: 09/13/23 09:31 Dose: 3 ml Documented By: BERHANE Furosemide (Furosemide 40 Mg/4 Ml Vial) 20 mg IV NOW ONE Stop: 09/13/23 11:14 Last Admin: 09/13/23 11:19 Dose: 20 mg Documented By: ESTIVEN Fentanyl 1,000 mcg/ Dextrose 250 mls @ 7.779 mls/hr IV TITRATE REYNA; Protocol Last Titration: 09/13/23 16:24 Dose: 0.9 mcg/kg/hr, 10 mls/hr Documented By: Admin: 09/13/23 15:38 Dose: 0.7 mcg/kg/hr, 7.779 mls/hr Documented By: PORSHA Piperacillin Sod/Tazobactam (Sod 4.5 gm/ Sodium Chloride) 100 mls @ 200 mls/hr IV NOW ONE Stop: 09/13/23 16:15 Last Infusion: 09/13/23 17:36 Dose: Infused Documented By: Admin: 09/13/23 16:34 Dose: 200 mls/hr Documented By: PORSHA Methylprednisolone (Methylprednisolone 125 Mg/2 Ml Vial) 125 mg IV NOW ONE Stop: 09/13/23 16:15 Last Admin: 09/13/23 16:35 Dose: 125 mg Documented By: PORSHA Propofol (Propofol 200 Mg/20 Ml Vial) 100 mg IV NOW ONE Stop: 09/13/23 15:02 Last Admin: 09/13/23 15:01 Dose: 100 mg Documented By: PORSHA Rocuronium [place] (Rocuronium 50 Mg/5 Ml Inj) 5 mg IV NOW ONE Stop: 09/13/23 15:02 Last Admin: 09/13/23 15:01 Dose: 5 mg Documented By: PORSHA Vital Signs Vital signs: Vital Signs - 8 hr 09/13/23 11:00 09/13/23 11:00 09/13/23 11:15 Pulse Rate 74 76 Respiratory Rate 14 16 Blood Pressure 174/95 H Pulse Oximetry 86 L 81 L Oxygen Delivery Method Fraction of Inspired Oxygen 09/13/23 11:30 09/13/23 11:34 09/13/23 11:34 Pulse Rate 73 71 Respiratory Rate 18 20 Blood Pressure 173/96 H Pulse Oximetry 93 94 Oxygen Delivery Method BiPAP Fraction of Inspired Oxygen 09/13/23 11:37 09/13/23 11:45 09/13/23 12:00 Pulse Rate 71 69 Respiratory Rate 21 24 Blood Pressure 173/96 H Pulse Oximetry 92 Oxygen Delivery Method Fraction of Inspired Oxygen 09/13/23 12:06 09/13/23 12:06 09/13/23 12:15 Pulse Rate 68 69 Respiratory Rate 18 21 Blood Pressure 167/94 H Pulse Oximetry 86 L 86 L Oxygen Delivery Method Fraction of Inspired Oxygen 09/13/23 12:30 09/13/23 12:30 09/13/23 12:45 Pulse Rate 70 69 Respiratory Rate 24 16 Blood Pressure 169/92 H Pulse Oximetry 84 L 81 L Oxygen Delivery Method BiPAP Fraction of Inspired Oxygen 09/13/23 13:00 Pulse Rate 69 Respiratory Rate 22 Blood Pressure Pulse Oximetry 86 L Oxygen Delivery Method Fraction of Inspired Oxygen MDM - Neuro Symptoms/Deficit Lab Data 09/13/23 09:23 09/13/23 12:05 Labs: Lab Results 09/13/23 09/13/23 09/13/23 Range/Units 09:23 11:06 12:03 WBC 6.9 (4.5-11.0) X10^3/uL RBC 5.41 H (4.0-5.2) X10^6/uL Hgb 16.9 H (12.0-16.0) g/dL Hct 53.9 H (36-46) % MCV 99.7 (80-100) fL MCH 31.3 (26-34) PG MCHC 31.4 (30-36) % RDW 14.2 (11.6-14.8) % Plt Count 177 (150-400) X10^3/uL Neut % (Auto) 87.1 H (50-75) % Lymph % (Auto) 3.3 L (25-40) % [place] % (Auto) 9.5 (3-14) % Eos % (Auto) 0.0 L (2-4) % Baso % (Auto) 0.1 (0-2) % Neut # (Auto) 6000 (0985-1519) /uL Lymph # (Auto) 200 L (3213-9375) /uL [place] # (Auto) 700 (0-900) /uL Eos # (Auto) 0 (0-450) /uL Baso # (Auto) 0 (0-100) /uL PT 18.4 H (9.4-12.5) SECONDS INR 1.6 H (0.9-1.3) APTT 30 (25.1-36.5) SECONDS D-Dimer 28360 H (<500) ng/ml ABG Sample Site Right brachial ABG pH 7.23 L* (7.35-7.45) ABG pCO2 90.5 H* (35-45) mmHg ABG pO2 73 L (80-100) mmHg ABG HCO3 38 H (23-27) mmol/L ABG Total CO2 41 H (23-27) mmol/L ABG O2 Saturation 90 L (95-100) % ABG Base Excess 11.0 H (-2-3) mmol/L FiO2 60 Sodium 136 L (137-145) mmol/L Potassium 5.3 H (3.4-5.1) mmol/L Chloride 94 L (98-107) mmol/L Carbon Dioxide 38 H (22-32) mmol/L BUN 36 H (7-17) mg/dL Creatinine 1.15 H (0.52-1.04) mg/dL Estimated GFR 54 L (>60) mL/min BUN/Creatinine Ratio 31.3 H (6-22) Glucose 131 H (80-110) mg/dL Calcium 8.2 L (8.4-10.2) mg/dL Total Bilirubin 1.5 H (0.2-1.3) mg/dL AST 1283 H (14-36) IU/L ALT 1046 H (<35) IU/L Alkaline Phosphatase 101 (38-126) U/L Total Creatine Kinase 102 (30-135) U/L Troponin I 0.130 H* (0.01-0.034) ng/mL NT-Pro-B Natriuret Pep 96806 H (<125) pg/mL Total Protein 6.5 (6.3-8.2) g/dL Albumin 3.7 (3.5-5.0) g/dL Globulin 2.8 (1.7-4.1) g/dL Albumin/Globulin Ratio 1.3 (1.0-2.8) Lipase 23 (23-300) U/L Procalcitonin 0.546 H (<0.5) ng/mL Urine RBC 0-1/hpf (0-5/HPF) Urine WBC None seen (0-5/HPF) Ur Squamous Epith Cells None seen (0-5/HPF) Urine Bacteria None seen (None) Hyaline Casts 1-5/lpf (None) Ur Culture Indicated? Cult not indicated Vol Urine Centrifuged 10ml (spun) Acetaminophen < 10 (10-30) ug/mL 09/13/23 09/13/23 Range/Units 12:05 12:35 WBC (4.5-11.0) X10^3/uL RBC (4.0-5.2) X10^6/uL Hgb (12.0-16.0) g/dL Hct (36-46) % MCV (80-100) fL MCH (26-34) PG MCHC (30-36) % RDW (11.6-14.8) % Plt Count (150-400) X10^3/uL Neut % (Auto) (50-75) % Lymph % (Auto) (25-40) % [place] % (Auto) (3-14) % Eos % (Auto) (2-4) % Baso % (Auto) (0-2) % Neut # (Auto) (7249-5980) /uL Lymph # (Auto) (9565-9066) /uL [place] # (Auto) (0-900) /uL Eos # (Auto) (0-450) /uL Baso # (Auto) (0-100) /uL PT (9.4-12.5) SECONDS INR (0.9-1.3) APTT (25.1-36.5) SECONDS D-Dimer (<500) ng/ml ABG Sample Site Right radial ABG pH 7.29 L* (7.35-7.45) ABG pCO2 80.2 H* (35-45) mmHg ABG pO2 53 L (80-100) mmHg ABG HCO3 39 H (23-27) mmol/L ABG Total CO2 41 H (23-27) mmol/L ABG O2 Saturation 81 L* (95-100) % ABG Base Excess 12.0 H (-2-3) mmol/L FiO2 30 Sodium 136 L (137-145) mmol/L Potassium 4.4 (3.4-5.1) mmol/L Chloride 96 L (98-107) mmol/L Carbon Dioxide 36 H (22-32) mmol/L BUN 35 H (7-17) mg/dL Creatinine 0.86 (0.52-1.04) mg/dL Estimated GFR > 60 (>60) mL/min BUN/Creatinine Ratio 40.7 H (6-22) Glucose 116 H (80-110) mg/dL Calcium 7.3 L (8.4-10.2) mg/dL Total Bilirubin 1.1 (0.2-1.3) mg/dL AST 1856 H (14-36) IU/L ALT 1501 H (<35) IU/L Alkaline Phosphatase 79 (38-126) U/L Total Creatine Kinase (30-135) U/L Troponin I 0.139 H* (0.01-0.034) ng/mL NT-Pro-B Natriuret Pep (<125) pg/mL Total Protein 5.7 L (6.3-8.2) g/dL Albumin 3.1 L (3.5-5.0) g/dL Globulin 2.6 (1.7-4.1) g/dL Albumin/Globulin Ratio 1.2 (1.0-2.8) Lipase (23-300) U/L Procalcitonin (<0.5) ng/mL Urine RBC (0-5/HPF) Urine WBC (0-5/HPF) Ur Squamous Epith Cells (0-5/HPF) Urine Bacteria (None) Hyaline Casts (None) Ur Culture Indicated? Vol Urine Centrifuged Acetaminophen (10-30) ug/mL Urine Dip Bedside Urine Glucose Negative Bedside Urine Bilirubin - Negative Bedside Urine Ketone - Negative Urine Specific [place] 1.020 Bedside Urine Occult Blood +/- Bedside Urine pH 6.0 Bedside Urine Protein +/- 15 Bedside Urine Urobilinogen - Negative Bedside Urine Nitrite - Negative Bedside Urine Leukocytes - Negative Esterase Imaging Data CT scan - chest: Radiologist's Impression: PROCEDURE: CT ANGIO CHEST PE PROTOCOL INDICATIONS: hypoxia TECHNIQUE: After the administration of intravenous contrast, 2 mm thick sections acquired from the pulmonary apices to the posterior costophrenic angles. 3-dimensional maximum intensity projection (MIP) coronal and sagittal reformats were then acquired through the thorax. For radiation dose reduction, the following was used: automated exposure control, adjustment of mA and/or kV according to patient size. COMPARISON: None. FINDINGS: Image quality: Diagnostic. Pulmonary arteries: Pulmonary arteries are dilated, and demonstrate no intraluminal filling defects to suggest central pulmonary embolism. Lower Neck: No enlarged lymph nodes. Thyroid: No thyroid nodules which require sonographic follow up, per consensus guidelines. Axillae: No enlarged lymph nodes. Chest Wall: Anasarca. Bones: Unremarkable. Lungs and Pleura: Moderate right and small left pleural effusion with bibasilar atelectasis. Mild centrilobular emphysema and bronchial thickening. Superimposed mild smooth interstitial thickening. Heart: Heart size is enlarged. No pericardial effusion. Moderate LAD calcifications. Thoracic Vessels: No aortic aneurysm. Mediastinum and Jeri: No enlarged lymph nodes. Esophagus: No wall thickening. No hiatal hernia. Upper Abdomen: Separately dictated. IMPRESSION: No pulmonary embolus. Moderate right and small left pleural effusions and mild pulmonary edema. Cardiomegaly. Pulmonary hypertension. Dictated by: Rodrigo Ga M.D. on 09/13/2023 at 10:37 CT scan - abdomen/pelvis: Radiologist's Impression: PROCEDURE: CT ABDOMEN PELVIS W CON INDICATIONS: elevated liver enzymes and hypoxia TECHNIQUE: After the administration of intravenous contrast, axial sections acquired from the lung bases to the pubic symphysis. Coronal and sagittal reformats were performed. For radiation dose reduction, the following was used: automated exposure control, adjustment of mA and/or kV according to patient size. COMPARISON: None. FINDINGS: Image quality: Diagnostic. Lower Chest: Cardiomegaly. Moderate right and small left pleural effusions with bibasilar atelectasis. ABDOMEN: Liver: Heterogeneous attenuation of the liver. Gallbladder: Diffuse gallbladder wall thickening without radiopaque stones. Biliary ducts: No biliary dilation. Pancreas: No ductal dilation. Spleen: Size is within normal limits. Adrenal Glands: No adrenal nodules. Kidneys and Ureters: No hydronephrosis. No solid mass. No complex renal cystic lesion which requires follow up. Stomach and Bowel: Normal colonic caliber, without significant wall thickening. Colonic diverticulosis without evidence of diverticulitis. Peritoneum: Moderate volume ascites. Ventral Wall: No significant ventral hernia. Abdominal Nodes: No retroperitoneal or mesenteric adenopathy by size criteria. Vessels: Aorta and inferior vena cava are normal in size. PELVIS: Pelvic Organs: Unremarkable. Bladder: No bladder wall thickening, accounting for underdistention. Pelvic Nodes: Dilated adnexal vasculature. Miscellaneous: No inguinal hernias are seen. Bones: No aggressive osseous abnormality. Degenerative disc disease of the lumbar spine. Grade 1 anterolisthesis of L4 on L5 secondary to facet arthrosis. IMPRESSION: Cardiomegaly with heterogeneous enhancement of the liver, diffuse wall thickening of the gallbladder and third-spacing of fluids (moderate volume ascites and small to moderate pleural effusions). Findings suggest cardiac hepatopathy. Acute hepatitis not excluded but less likely. Dictated by: Rodrigo Ga M.D. on 09/13/2023 at 10:31 US - abdomen: Radiologist's Impression: PROCEDURE: US ABDOMEN LIMITED INDICATIONS: elevated liver enzyemes TECHNIQUE: Real-time scanning was performed of the abdominal and retroperitoneal organs, with image documentation. COMPARISON: [facility], CT, CT ABDOMEN PELVIS W CON, 09/13/2023, 10:19. FINDINGS: Liver: Heterogeneous echogenicity. No significant portal edema. Gallbladder: No gallstones. Diffuse but mild wall thickening. Negative sonographic Mittal sign. Biliary ducts: Intrahepatic bile ducts are non-dilated. Extrahepatic bile duct caliber measures 6 mm. Normal is 6-7 mm or less in diameter, or 10 mm or less post-cholecystectomy. Pancreas: Visualized portions of the pancreas are sonographically normal. Miscellaneous: Small volume ascites. Right greater than left pleural effusions. IMPRESSION: Heterogeneous liver echogenicity, nonspecific. Please see same day chest CT and abdominal CT for further discussion. Chest x-ray: Radiologist's Impression: PROCEDURE: XR CHEST 1V INDICATIONS: intubated TECHNIQUE: One view of the chest was acquired. COMPARISON: [facility], CR, XR CHEST 1V, 09/13/2023, 9:56. FINDINGS: Surgical changes and devices: Endotracheal tube tip 7 cm above the coretta. Multiple overlying leads and wires Lungs and pleura: Bibasilar pleural effusions greater on the right, similar prior exam. No pneumothorax. Mediastinum: Mediastinal contours appear normal. Heart size is normal. Bones and chest wall: No suspicious bony lesions. Overlying soft tissues appear unremarkable. IMPRESSION: Endotracheal tube tip 7 cm above the coretta. Bibasilar pleural effusions greater on the right. No pneumothorax. Approved by: Uriel Wagner M.D. on 09/13/2023 at 15:16 ECG Data Attestation: I personally reviewed and interpreted this ECG as follows: Prior ECG tracings: not available for review Interpretation: Sinus rhythm rate 74 OR interval 130 QRS 86 QTC 419 low voltage no significant ST changes no priors to compare. MDM Narrative Medical decision making narrative: Patient 62-year/old female history of emphysema chronic hypoxia awaiting oxygen approval for home use presents today with increasing weakness concern for CVA. Patient has a NIH stroke scale 0. I suspect that neurologic symptoms are secondary to severe hypoxia. O2 improves with nasal cannula. Color improved she actually no significant respiratory distress she has some slight decreased breath sounds but no significant wheezing or rales. [facility] CC: Weakness Complicating co-morbidities: Chronic hypoxia Corroborating data: Data collected from: Medical records reviewed: PCP notes recent echocardiogram [facility] done on 09/11/2023. Which does show pulmonary hypertension cor pulmonale trace pericardial effusion Differential considered: Exam documented above, pertinent findings include: Cyanosis is without significant respiratory distress some decreased breath sounds on the right side no significant rales or rhonchi Lab Test results independently reviewed as above. Pertinent findings: Independently reviewed EKG as above Imaging studies independently reviewed: Chest x-ray number small loculated pleural effusion CT chest angio no pulmonary embolism right-sided moderate pleural effusion, left-sided small mild pulmonary edema CT abdomen pelvis cardiomegaly with heterogeneous enhancement of wood or diffuse wall thickening of gallbladder and 3rd spacing of fluids moderate volume ascites suggest cardiac hepatopathy acute hepatitis not excluded but less likely Ultrasound right upper quadrant heterogeneous liver Repeat chest x-ray shows ET tube above the coretta Consultations: Dr. Benitez on-call cardiology states that this is right ventricular failure cor pulmonale, troponin is likely demand ischemia no need to transfer for cardiac catheterization 1614 Dr. Holman decision present for anticipation, fortunately intubation went smoothly without any sort of complications 1614 Dr. Stinson, distribution a class lineman at [facility] updated patient's symptoms test results and accepts patient Treatments: BiPAP Lasix Re-evaluations: Patient initially was put on nasal cannula and high-flow O2 sat remained 88% or below. However patient became more unresponsive. She was then changed over to BiPAP. She initially was talking and improved quite a bit while on BiPAP however she then got somnolent. Required sternal rubs but frequently did wake Initial ABG Off bipap 7.23/90.5/73/38/ Put on Bi pap with settings 16/8 --7.29/80.2/53/39 Bi pap settings changes 22/8 ----7.32/84.6/67/43 (becoming more solumulent) Discussion: Patient has chronic hypoxic respiratory failure. She is found to have mildly elevated troponins which are thought to be from secondary to demand ischemia from chronic ongoing hypoxia. However liver enzymes are also significantly elevated in the 1000 levels. On exam she is not tender in her right upper quadrant she has a normal bilirubin. Ultrasound and CT do not show any evidence of gallbladder pathology. CT does suggest a cardiac hepatology. Tylenol level was ordered and is negative no reports of Tylenol ingestion. Possible hepatitis as well she is nontender. Although this could be secondary to significant cardiac issue. Initially cardiology did not recommend transferring recommended diuresis. Hospitalist Dr. Gonzalez in ED to see and evaluate patient initially accepted patient however patient continues to fail BiPAP. He is spoke with on-call distribution a class lineman who agreed with intubation and transfer. Long discussion about intubation she continues to fall asleep on BiPAP but then can be sternal rubbed. However due to ongoing issues with definitely benefit from intubation and be more easily managed. With at bedside while on BiPAP she was able to write down. She does not want long-term trach and PEG but is agreeable to short-term intubation. At this time she remains a full code. Significant concern for alexis arrest during intubation. Anesthesia was called to bedside she fortunately was an easy intubation I did intubate her without any sort of issue. Blood cultures are pending she is given dose of Zosyn. She has not requiring any sort of vasopressor support she was never hypotensive or tachycardic. Surprisingly when she 1st arrived she did not show any significant sign of respiratory distress. But slightly cyanotic. Critical Care Time Critical Care Time Critical Care Time: Yes Total Critical Care Time: 80 Attestation: The high probability of a clinically significant, sudden or life threatening deterioration of the [cardiovascular] system(s) required my full and direct attention, intervention and personal management. The aggregate critical care time was 80 minutes. This time is in addition to time spent performing reported procedures but includes the following: [x] Data Review and interpretation [x] Patient assessment and monitoring of vital signs [x] Documentation [x] Medication orders and management Discharge Plan Departure Patient Disposition: [facility] Clinical Impression: Right heart failure, Demand ischemia, Pleural effusion
[2023-09-13] MEDS: ALBUTEROL/IPRATROPIUM 3 ML AMPUL INH (09:31)
--- NOTE | 2023-09-13 09:34 | DI.RAD.S_ITS ---
PROCEDURE: XR CHEST 1V INDICATIONS: short of breath TECHNIQUE: One view of the chest was acquired. COMPARISON: [facility], CHEST 2 VIEW, 09/26/2010, 11:46. [facility], CHEST 2 VIEW, 01/09/2008, 9:19. FINDINGS: Surgical changes and devices: None. Lungs and pleura: Small loculated pleural effusions with bibasilar atelectasis/consolidation. Mediastinum: Mediastinal contours appear normal. Heart size is likely enlarged. Bones and chest wall: No suspicious bony lesions. Overlying soft tissues appear unremarkable. IMPRESSION: Small loculated pleural effusions with bibasilar atelectasis/consolidation. Dictated by: Rodrigo Ga M.D. on 09/13/2023 at 10:19 Approved by: Rodrigo Ga M.D. on 09/13/2023 at 10:20
[2023-09-13 09:41] LABS: INR 1.6 (0.9-1.3); Prothrombin Time 18.4 SECONDS (9.4-12.5)
[2023-09-13 09:43] LABS: Add Manual Diff / Slide Review NO; Basophils Absolute Auto 0 /uL (0-100); Basophils Percent Auto 0.1 % (0-2); Eosinophils Absolute Auto 0 /uL (0-450); Hematocrit 53.9 % (36-46); Hemoglobin 16.9 g/dL (12.0-16.0); Lymphocytes Absolute Auto 200 /uL (1100-4500); Lymphocytes Percent Auto 3.3 % (25-40); Mean Corpuscular HGB Conc 31.4 % (30-36); Mean Corpuscular Hemoglobin 31.3 PG (26-34); Mean Corpuscular Volume 99.7 fL (80-100); Monocytes Absolute Auto 700 /uL (0-900); Monocytes Percent Auto 9.5 % (3-14); Neutrophils Absolute Auto 6000 /uL (1500-7000); Neutrophils Percent Auto 87.1 % (50-75); Platelet Count 177 X10^3/uL (150-400); Red Blood Cell Count 5.41 X10^6/uL (4.0-5.2); Red Cell Distribution Width 14.2 % (11.6-14.8); White Blood Cell Count 6.9 X10^3/uL (4.5-11.0)
[2023-09-13 09:44] LABS: PTT Partial Thromboplastin Tim 30 SECONDS (25.1-36.5)
[2023-09-13 09:47] LABS: Albumin 3.7 g/dL (3.5-5.0); Albumin Globulin Ratio 1.3 (1.0-2.8); Alkaline Phosphatase 101 U/L (38-126); BUN Creatinine Ratio 31.3 (6-22); Bilirubin Total 1.5 mg/dL (0.2-1.3); Blood Urea Nitrogen 36 mg/dL (7-17); Calcium 8.2 mg/dL (8.4-10.2); Carbon Dioxide 38 mmol/L (22-32); Chloride 94 mmol/L (98-107); Creatine Kinase 102 U/L (30-135); Estimated Glomerular Filt Rate 54 mL/min (>60); Globulin 2.8 g/dL (1.7-4.1); Glucose 131 mg/dL (80-110); Lipase 23 U/L (23-300); Potassium 5.3 mmol/L (3.4-5.1); Sodium 136 mmol/L (137-145); Total Protein 6.5 g/dL (6.3-8.2)
[2023-09-13 09:55] LABS: Aspartate Aminotransferase 1283 IU/L (14-36); HEMOLYSIS 27 (0-50)
[2023-09-13 09:56] LABS: Alanine Aminotransferase 1046 IU/L (<35)
[2023-09-13 10:04] LABS: D Dimer 18005 ng/ml (<500); Procalcitonin 0.546 ng/mL (<0.5)
--- NOTE | 2023-09-13 10:05 | DI.CT.S_ITS ---
PROCEDURE: CT ANGIO CHEST PE PROTOCOL INDICATIONS: hypoxia TECHNIQUE: After the administration of intravenous contrast, 2 mm thick sections acquired from the pulmonary apices to the posterior costophrenic angles. 3-dimensional maximum intensity projection (MIP) coronal and sagittal reformats were then acquired through the thorax. For radiation dose reduction, the following was used: automated exposure control, adjustment of mA and/or kV according to patient size. COMPARISON: None. FINDINGS: Image quality: Diagnostic. Pulmonary arteries: Pulmonary arteries are dilated, and demonstrate no intraluminal filling defects to suggest central pulmonary embolism. Lower Neck: No enlarged lymph nodes. Thyroid: No thyroid nodules which require sonographic follow up, per consensus guidelines. Axillae: No enlarged lymph nodes. Chest Wall: Anasarca. Bones: Unremarkable. Lungs and Pleura: Moderate right and small left pleural effusion with bibasilar atelectasis. Mild centrilobular emphysema and bronchial thickening. Superimposed mild smooth interstitial thickening. Heart: Heart size is enlarged. No pericardial effusion. Moderate LAD calcifications. Thoracic Vessels: No aortic aneurysm. Mediastinum and Jeri: No enlarged lymph nodes. Esophagus: No wall thickening. No hiatal hernia. Upper Abdomen: Separately dictated. IMPRESSION: No pulmonary embolus. Moderate right and small left pleural effusions and mild pulmonary edema. Cardiomegaly. Pulmonary hypertension. Dictated by: Rodrigo Ga M.D. on 09/13/2023 at 10:37 Approved by: Rodrigo Ga M.D. on 09/13/2023 at 10:40
--- NOTE | 2023-09-13 10:05 | DI.US.S_ITS ---
PROCEDURE: US ABDOMEN LIMITED INDICATIONS: elevated liver enzyemes TECHNIQUE: Real-time scanning was performed of the abdominal and retroperitoneal organs, with image documentation. COMPARISON: [facility], CT, CT ABDOMEN PELVIS W CON, 09/13/2023, 10:19. FINDINGS: Liver: Heterogeneous echogenicity. No significant portal edema. Gallbladder: No gallstones. Diffuse but mild wall thickening. Negative sonographic Mittal sign. Biliary ducts: Intrahepatic bile ducts are non-dilated. Extrahepatic bile duct caliber measures 6 mm. Normal is 6-7 mm or less in diameter, or 10 mm or less post-cholecystectomy. Pancreas: Visualized portions of the pancreas are sonographically normal. Miscellaneous: Small volume ascites. Right greater than left pleural effusions. IMPRESSION: Heterogeneous liver echogenicity, nonspecific. Please see same day chest CT and abdominal CT for further discussion. Dictated by: Rodrigo Ga M.D. on 09/13/2023 at 10:55 Approved by: Rodrigo Ga M.D. on 09/13/2023 at 10:56
--- NOTE | 2023-09-13 10:05 | DI.CT.S_ITS ---
PROCEDURE: CT ABDOMEN PELVIS W CON INDICATIONS: elevated liver enzymes and hypoxia TECHNIQUE: After the administration of intravenous contrast, axial sections acquired from the lung bases to the pubic symphysis. Coronal and sagittal reformats were performed. For radiation dose reduction, the following was used: automated exposure control, adjustment of mA and/or kV according to patient size. COMPARISON: None. FINDINGS: Image quality: Diagnostic. Lower Chest: Cardiomegaly. Moderate right and small left pleural effusions with bibasilar atelectasis. ABDOMEN: Liver: Heterogeneous attenuation of the liver. Gallbladder: Diffuse gallbladder wall thickening without radiopaque stones. Biliary ducts: No biliary dilation. Pancreas: No ductal dilation. Spleen: Size is within normal limits. Adrenal Glands: No adrenal nodules. Kidneys and Ureters: No hydronephrosis. No solid mass. No complex renal cystic lesion which requires follow up. Stomach and Bowel: Normal colonic caliber, without significant wall thickening. Colonic diverticulosis without evidence of diverticulitis. Peritoneum: Moderate volume ascites. Ventral Wall: No significant ventral hernia. Abdominal Nodes: No retroperitoneal or mesenteric adenopathy by size criteria. Vessels: Aorta and inferior vena cava are normal in size. PELVIS: Pelvic Organs: Unremarkable. Bladder: No bladder wall thickening, accounting for underdistention. Pelvic Nodes: Dilated adnexal vasculature. Miscellaneous: No inguinal hernias are seen. Bones: No aggressive osseous abnormality. Degenerative disc disease of the lumbar spine. Grade 1 anterolisthesis of L4 on L5 secondary to facet arthrosis. IMPRESSION: Cardiomegaly with heterogeneous enhancement of the liver, diffuse wall thickening of the gallbladder and third-spacing of fluids (moderate volume ascites and small to moderate pleural effusions). Findings suggest cardiac hepatopathy. Acute hepatitis not excluded but less likely. Dictated by: Rodrigo Ga M.D. on 09/13/2023 at 10:31 Approved by: Rodrigo Ga M.D. on 09/13/2023 at 10:34
[2023-09-13 10:18] LABS: Acetaminophen < 10 ug/mL (10-30)
[2023-09-13 10:27] LABS: NT-proBNP (BNP-Adult 18+) 11000 pg/mL (<125)
[2023-09-13 11:17] LABS: PCO2 ABG 90.5 mmHg (35-45); PO2 ABG 73 mmHg (80-100); pH ABG 7.23 (7.35-7.45)
[2023-09-13 11:18] LABS: Blood Gas Collection Site Right Brachial; Fractionated Inspired Oxygen 60; HCO3 ABG 38 mmol/L (23-27); Oxygen Saturation ABG 90 % (95-100); TCO2 ABG 41 mmol/L (23-27)
[2023-09-13] MEDS: FUROSEMIDE 40 MG/4 ML VIAL 20 MG IV (11:19)
--- NOTE | 2023-09-13 11:33 | P.CALLCOV_ITS ---
Call Coverage Note Note Date of Patient Contact: 09/13/23 Narrative of Care Provided: 62 F with PMH of epaubrie with trelegy, probable chronic hypoxemic and hypercapnic respiratory failure who presented with bilateral hand weakness initially. Was markedly hypoxic, with oxygen then developed worsening mental status and gas showed respiratory acidosis with PCO2 of 90. CTA negative for PE, showed marked volume overload. CT abdomen showed probable hepatic congestion. AST/ALT are markedly elevated, usually this elevated in the setting of ischemia. She also has a new JAYESH though Cr is only 1.2. Presentation is concerning for an acute heart failure and with troponin of 0.130 concerning for ACS/NSTEMI which would best be managed at a higher level facility with C (and presume RH) capabilities. Recommend trending troponin for now, limited echo (apparently one done yesterday? per ER provider) and repeat LFTs, conway for accurate intake and output, and more lasix depending on response to initial 20 mg. Consider discussion with neckties painter as well depending on repeat lab evaluations.
[2023-09-13 12:27] LABS: Urine Volume 10mL (spun)
[2023-09-13 12:28] LABS: RBC Urine 0-1/HPF (0-5/HPF)
[2023-09-13 12:29] LABS: Bacteria Urine None Seen; Culture Indicated Urine Cult Not Indicated; Hyaline Casts Urine 1-5/LPF; Squamous Epithelial Cell Urine None Seen (0-5/HPF); WBC Urine None Seen (0-5/HPF)
[2023-09-13 12:44] LABS: Troponin I 0.139 ng/mL (0.01-0.034)
[2023-09-13 12:55] LABS: pH ABG 7.29 (7.35-7.45)
[2023-09-13 12:56] LABS: HCO3 ABG 39 mmol/L (23-27); Oxygen Saturation ABG 81 % (95-100); PCO2 ABG 80.2 mmHg (35-45); PO2 ABG 53 mmHg (80-100); TCO2 ABG 41 mmol/L (23-27)
[2023-09-13 12:57] LABS: Allen Test for ABG Passed? Yes, Passed; Blood Gas Collection Site Right Radial; Fractionated Inspired Oxygen 30
[2023-09-13 13:05] LABS: Albumin 3.1 g/dL (3.5-5.0); Albumin Globulin Ratio 1.2 (1.0-2.8); Alkaline Phosphatase 79 U/L (38-126); BUN Creatinine Ratio 40.7 (6-22); Bilirubin Total 1.1 mg/dL (0.2-1.3); Blood Urea Nitrogen 35 mg/dL (7-17); Calcium 7.3 mg/dL (8.4-10.2); Chloride 96 mmol/L (98-107); Estimated Glomerular Filt Rate > 60 mL/min (>60); Globulin 2.6 g/dL (1.7-4.1); Glucose 116 mg/dL (80-110); Potassium 4.4 mmol/L (3.4-5.1); Sodium 136 mmol/L (137-145); Total Protein 5.7 g/dL (6.3-8.2)
--- NOTE | 2023-09-13 13:13 | PM.HP.1 ---
History of Present Illness History of Present Illness Date Patient Seen: 09/13/23 Time Patient Seen: 13:13 Chief complaint: stroke symptoms per pt Narrative: This is a 62 year old female, with PMH of COPD/emphysema PFSH Medical History (Updated 09/13/23 @ 13:08 by Florence Holland DO) Encounter for initial annual wellness visit (AWV) in Medicare patient COVID-19 Malnutrition Cervical radiculopathy Facet arthropathy, cervical Cervical stenosis of spinal canal Loose, teeth Wears glasses Neuropathy Nephritis Constipation Neck pain Shoulder pain Arthritis Restless leg syndrome (Unknown) Osteoarthritis (Unknown) Degenerative disc disease, lumbar (Unknown) Migraines (Unknown) Asthma (Unknown) Cervical spine disease (Unknown) Surgical History H/O arthroscopy of shoulder (~1999) Status post appendectomy History of carpal tunnel repair Status post tubal ligation Family History Father No problems noted. Mother No problems noted. Social History household members: spouse Smoking Status: Former smoker (2 Cigarettes since Covid 05/2022. ) Tobacco: How many years used: 40 second hand exposure: No alcohol intake: former substance use type: marijuana Meds Home Medications and Allergies Home Medications Medication Instructions Recorded Confirmed Type [HERBAL LOTION] topical PRN PRN ##0 06/16/19 08/27/23 History acetaminophen 325 mg tablet 325 mg PO ONCE PRN 06/15/22 08/27/23 History (Tylenol) baclofen 10 mg tablet 10 mg PO BID for muscle spasm #180 04/04/23 08/27/23 Rx tabs inhalational spacing device #1 ea 05/15/23 08/27/23 Rx (BreatheRite MDI Spacer) acetaminophen 300 mg-codeine 15 mg 1 tab PO Q8H PRN pain #30 tabs 05/25/23 08/27/23 Rx tablet gabapentin 300 mg capsule 600 mg (2 x 300 mg) PO HS #180 caps 06/13/23 08/27/23 Rx (Neurontin) Ventolin HFA 90 mcg/actuation 2 puff inhalation Q4-6H PRN for 08/14/23 08/27/23 Rx aerosol inhaler (albuterol sulfate) wheezing #36 grams fluticasone fur. 100 mcg-umeclid 1 inh inhalation DAILY #60 ea 08/23/23 08/27/23 Rx 62.5 mcg-vilant 25 mcg inhalat.powder (Trelegy Ellipta) oxygen concentrator #1 ea 08/23/23 08/27/23 Rx portable oxygen concentrator #1 ea 08/27/23 08/27/23 Rx Allergies Allergy/AdvReac Type Severity Reaction Status Date / Time diclofenac AdvReac Intermediate Reaction Verified 09/13/23 09:26 as soon as applied. Rash/Burning Sensation NSAIDS (Non-Steroidal AdvReac Intermediate UTI Verified 09/13/23 09:26 Anti-Inflamma [NSAIDS (NON-STEROIDAL ANTI-INFLAMMA] Exam Vital Signs (past 8 hours): - 09/13/23 09:05 09/13/23 09:13 09/13/23 09:13 Temperature 97.9 F Pulse Rate 80 68 Respiratory Rate 22 Blood Pressure 139/84 139/84 Pulse Oximetry 60 L 69 L Oxygen Delivery Method Room Air Oxygen Flow Rate Fraction of Inspired Oxygen 09/13/23 09:15 09/13/23 09:30 09/13/23 09:32 Temperature Pulse Rate 79 74 73 Respiratory Rate 14 13 20 Blood Pressure Pulse Oximetry 42 L 86 L 88 L Oxygen Delivery Method Nasal Cannula Nasal Cannula Oxygen Flow Rate 6 Fraction of Inspired Oxygen 09/13/23 09:33 09/13/23 09:33 09/13/23 09:45 Temperature Pulse Rate 73 74 Respiratory Rate 19 18 Blood Pressure 162/87 H Pulse Oximetry 91 Oxygen Delivery Method Oxygen Flow Rate Fraction of Inspired Oxygen 09/13/23 10:00 09/13/23 10:00 09/13/23 10:05 Temperature Pulse Rate 73 73 Respiratory Rate 22 20 Blood Pressure 182/98 H Pulse Oximetry 86 L 88 L Oxygen Delivery Method Oxygen Flow Rate Fraction of Inspired Oxygen 09/13/23 10:23 09/13/23 10:24 09/13/23 10:24 Temperature Pulse Rate 72 72 Respiratory Rate 15 13 Blood Pressure 168/93 H Pulse Oximetry 85 L 75 L Oxygen Delivery Method High Flow Nasal Cannula Oxygen Flow Rate Fraction of Inspired Oxygen 09/13/23 10:30 09/13/23 10:30 09/13/23 10:45 Temperature Pulse Rate 69 72 Respiratory Rate 12 13 Blood Pressure 178/94 H Pulse Oximetry 88 L 81 L Oxygen Delivery Method High Flow Nasal Cannula High Flow Nasal Cannula Oxygen Flow Rate 40 Fraction of Inspired Oxygen 09/13/23 11:00 09/13/23 11:00 09/13/23 11:15 Temperature Pulse Rate 74 76 Respiratory Rate 14 16 Blood Pressure 174/95 H Pulse Oximetry 86 L 81 L Oxygen Delivery Method Oxygen Flow Rate Fraction of Inspired Oxygen 09/13/23 11:30 09/13/23 11:34 09/13/23 11:34 Temperature Pulse Rate 73 71 Respiratory Rate 18 20 Blood Pressure 173/96 H Pulse Oximetry 93 94 Oxygen Delivery Method BiPAP Oxygen Flow Rate Fraction of Inspired Oxygen 09/13/23 11:37 09/13/23 11:45 09/13/23 12:00 Temperature Pulse Rate 71 69 Respiratory Rate 21 24 Blood Pressure 173/96 H Pulse Oximetry 92 Oxygen Delivery Method Oxygen Flow Rate Fraction of Inspired Oxygen 30 09/13/23 12:06 09/13/23 12:06 09/13/23 12:15 Temperature Pulse Rate 68 69 Respiratory Rate 18 21 Blood Pressure 167/94 H Pulse Oximetry 86 L 86 L Oxygen Delivery Method Oxygen Flow Rate Fraction of Inspired Oxygen 09/13/23 12:30 09/13/23 12:30 Temperature Pulse Rate 70 Respiratory Rate 24 Blood Pressure 169/92 H Pulse Oximetry 84 L Oxygen Delivery Method BiPAP Oxygen Flow Rate Fraction of Inspired Oxygen Fraction of Inspired Oxygen 30 Oxygen Delivery Method BiPAP Oxygen Flow Rate 40 Objective Labs 09/13/23 09:23 09/13/23 12:05 Labs: Laboratory Results - last 24 hr 09/13/23 09/13/23 09/13/23 09:23 11:06 12:03 WBC 6.9 RBC 5.41 H Hgb 16.9 H Hct 53.9 H MCV 99.7 MCH 31.3 MCHC 31.4 RDW 14.2 Plt Count 177 Neut % (Auto) 87.1 H Lymph % (Auto) 3.3 L [place] % (Auto) 9.5 Eos % (Auto) 0.0 L Baso % (Auto) 0.1 Neut # (Auto) 6000 Lymph # (Auto) 200 L [place] # (Auto) 700 Eos # (Auto) 0 Baso # (Auto) 0 PT 18.4 H INR 1.6 H APTT 30 D-Dimer 13698 H ABG Sample Site Right brachial ABG pH 7.23 L* ABG pCO2 90.5 H* ABG pO2 73 L ABG HCO3 38 H ABG Total CO2 41 H ABG O2 Saturation 90 L ABG Base Excess 11.0 H FiO2 60 Sodium 136 L Potassium 5.3 H Chloride 94 L Carbon Dioxide 38 H BUN 36 H Creatinine 1.15 H Estimated GFR 54 L BUN/Creatinine Ratio 31.3 H Glucose 131 H Calcium 8.2 L Total Bilirubin 1.5 H AST 1283 H ALT 1046 H Alkaline Phosphatase 101 Total Creatine Kinase 102 Troponin I 0.130 H* NT-Pro-B Natriuret Pep 84535 H Total Protein 6.5 Albumin 3.7 Globulin 2.8 Albumin/Globulin Ratio 1.3 Lipase 23 Procalcitonin 0.546 H Urine RBC 0-1/hpf Urine WBC None seen Ur Squamous Epith Cells None seen Urine Bacteria None seen Hyaline Casts 1-5/lpf Ur Culture Indicated? Cult not indicated Vol Urine Centrifuged 10ml (spun) Acetaminophen < 10 09/13/23 09/13/23 12:05 12:35 WBC RBC Hgb Hct MCV MCH MCHC RDW Plt Count Neut % (Auto) Lymph % (Auto) [place] % (Auto) Eos % (Auto) Baso % (Auto) Neut # (Auto) Lymph # (Auto) [place] # (Auto) Eos # (Auto) Baso # (Auto) PT INR APTT D-Dimer ABG Sample Site Right radial ABG pH 7.29 L* ABG pCO2 80.2 H* ABG pO2 53 L ABG HCO3 39 H ABG Total CO2 41 H ABG O2 Saturation 81 L* ABG Base Excess 12.0 H FiO2 30 Sodium 136 L Potassium 4.4 Chloride 96 L Carbon Dioxide BUN 35 H Creatinine 0.86 Estimated GFR > 60 BUN/Creatinine Ratio 40.7 H Glucose 116 H Calcium 7.3 L Total Bilirubin 1.1 AST ALT Alkaline Phosphatase 79 Total Creatine Kinase Troponin I 0.139 H* NT-Pro-B Natriuret Pep Total Protein 5.7 L Albumin 3.1 L Globulin 2.6 Albumin/Globulin Ratio 1.2 Lipase Procalcitonin Urine RBC Urine WBC Ur Squamous Epith Cells Urine Bacteria Hyaline Casts Ur Culture Indicated? Vol Urine Centrifuged Acetaminophen
[2023-09-13 13:14] LABS: Alanine Aminotransferase 1501 IU/L (<35); Carbon Dioxide 36 mmol/L (22-32)
[2023-09-13 13:23] LABS: Aspartate Aminotransferase 1856 IU/L (14-36); HEMOLYSIS 83 (0-50)
[2023-09-13 14:07] LABS: Blood Gas Collection Site Right Brachial; Fractionated Inspired Oxygen 30; HCO3 ABG 43 mmol/L (23-27); Oxygen Saturation ABG 90 % (95-100); PCO2 ABG 84.6 mmHg (35-45); PO2 ABG 67 mmHg (80-100); TCO2 ABG 46 mmol/L (23-27); pH ABG 7.32 (7.35-7.45)
--- NOTE | 2023-09-13 14:55 | P.CALLCOV_ITS ---
Call Coverage Note Note Narrative of Care Provided: Patient with worsening CO2 despite BIPAP therapy. Discussed with patient and spouse at bedside, patient being intubated. Discussed with tele-carton forming machine operator. Tele-carton forming machine operator recommends transfer for higher level of care, given marked transaminitis consistent with R heart failure, along with need for intubation makes management difficult and patient should be transferred to center with cardiology and carton forming machine operator management in person. Should there not be a bed av ailable for transfer, can admit overnight for continued management.
--- NOTE | 2023-09-13 14:55 | PM.CALLCOV.1 ---
Call Coverage Note Note Narrative of Care Provided: Patient with worsening CO2 despite BIPAP therapy. Discussed with patient and spouse at bedside, patient being intubated. Discussed with tele-global director air and climate change. Tele-global director air and climate change recommends transfer for higher level of care, given marked transaminitis consistent with R heart failure, along with need for intubation makes management difficult and patient should be transferred to center with cardiology and global director air and climate change management in person. Should there not be a bed available for transfer, can admit overnight for continued management.
[2023-09-13] MEDS: ROCURONIUM 50 MG/5 ML INJ IV (15:01)
[2023-09-13] MEDS: propofoL 200 MG/20 ML VIAL 100 MG IV (15:01)
--- NOTE | 2023-09-13 15:05 | DI.RAD.S_ITS ---
PROCEDURE: XR CHEST 1V INDICATIONS: intubated TECHNIQUE: One view of the chest was acquired. COMPARISON: [facility], CR, XR CHEST 1V, 09/13/2023, 9:56. FINDINGS: Surgical changes and devices: Endotracheal tube tip 7 cm above the coretta. Multiple overlying leads and wires Lungs and pleura: Bibasilar pleural effusions greater on the right, similar prior exam. No pneumothorax. Mediastinum: Mediastinal contours appear normal. Heart size is normal. Bones and chest wall: No suspicious bony lesions. Overlying soft tissues appear unremarkable. IMPRESSION: Endotracheal tube tip 7 cm above the coretta. Bibasilar pleural effusions greater on the right. No pneumothorax. Approved by: Uriel Wagner M.D. on 09/13/2023 at 15:16
[2023-09-13] MEDS: propofoL 1,000 MG/100 ML VIAL 1.334 MG IV (15:20)
--- NOTE | 2023-09-13 15:25 | RT ---
Was called down to ER to do an elective intubation for airway protection. Anesthesia was called to help out with intubation. Pt was intubated with a 7.5 ETT and is 21 @ lip. ER requested following settings: AC/VC 300/24/0.3/+5. Other RT Omar Quintana was helping with the intubaton as well givng breaths via BVM. Pt will either be transferred upstairs or transferred out to another facility.
[2023-09-13] MEDS: fentaNYL 1,000 MCG in DEXTROSE 5% IN WATER 230 ML 7.779 MCG IV (15:38)
--- NOTE | 2023-09-13 15:56 | PC.NURSE ---
Hospital Call list for patient transfer [id number]- [facility], spoke with Rosalee, patient on wait list 1525- [facility], spoke with Lex, patient on wait list 1535- [facility], spoke with Terri, patient on wait list 1552- [facility], spoke with Angela, patient on wait list
--- NOTE | 2023-09-13 16:03 | PM.PROC.1 ---
Procedures Date/Time Date of procedure: 09/13/23 Time of procedure: 15:03 Intubation Time out performed: No (Confirmed pt name, discussed intubation and got her verbal permission) Sedative: other (propofol) Mg given: 100 Paralytic: rocuronium Mg given: 50 Laryngoscope: other (Insighter with 6S blade) ET tube size: 7.5 Tube secured depth (cm): 21 Tube secured location: teeth Tube placement confirmation: visualized tube passing through cords, equal breath sounds bilaterally and confirmation by capnometry Patient tolerated procedure: well Intubation complications: none Additional comments: Discussed pt with Dr. Gonzalez--pt in respiratory failure with severe obstructive disease. Unable to obtain home O2; sats at home 70s, 60s in ED today, low 80s on BiPAP. Pt awake and alert. Dr. Susy Holland performed intubation under my direct observation. Easy mask by RT. Grade 1 view with Insighter 6S. First pass with intubation. Total time with pt 14:52-15:08, intubated 15:03.
[2023-09-13] MEDS: PIPERACILLIN/TAZO 4.5 GM in SODIUM CHLORIDE 0.9% 100 ML IV (16:34)
[2023-09-13] MEDS: methylPREDNISolone 125 MG/2 ML VIAL IV (16:35)
[2023-09-13 16:50] LABS: Appearance Urine UA CLEAR; Bilirubin Urine UA NEGATIVE (NEGATIVE); Color Urine UA YELLOW; Glucose Urine UA NEGATIVE (Negative); Ketones Urine UA NEGATIVE (NEGATIVE); Leukocyte Esterase Urine UA NEGATIVE (NEGATIVE); Nitrite Urine UA NEGATIVE (Negative); Occult Blood Urine UA 1+ (Negative); Protein Urine UA TRACE (Negative); Urobilinogen Urine UA 0.2 E.U./dL (0.2)
[2023-09-13 16:53] LABS: pH Urine UA 5.5 (4.5-8.0)
[2023-09-13 17:07] LABS: Amorphous Sediment Urine 1+; Bacteria Urine None Seen; Culture Indicated Urine Cult Not Indicated; Hyaline Casts Urine 5-10/LPF; RBC Urine None Seen (0-5/HPF); Squamous Epithelial Cell Urine None Seen (0-5/HPF); Urine Volume 10mL (spun); WBC Urine None Seen (0-5/HPF)
--- NOTE | 2023-09-13 17:12 | P.CONS_ITS ---
History of Present Illness Consult details Date Patient Seen: 09/13/23 Time Patient Seen: 11:30 Chief complaint: stroke symptoms per pt Narrative: This is a brief consult note for care provided on 09/12. 62 F with PMH of obstructive lung disease, probable chronic hypoxemic and hypercapnic respiratory failure who presented with bilateral hand weakness initially. Was markedly hypoxic, with oxygen then developed worsening mental status and gas showed respiratory acidosis with PCO2 of 90. CTA negative for PE, showed marked volume overload. CT abdomen showed probable hepatic congestion. Initiallly her presentation was concerning for acute heart failure. She had had an echo done the day before which showed massive volume overload, and right heart failure but EF around 50-55%. Troponin was mildly elevated. Patient was to be accepted on BiPAP therapy presuming improvement with diuresis only. However, patient with worsening CO2 despite BIPAP therapy. Discussed with patient and spouse at bedside, patient was agreeable to being intubated. Discussed with tele-rent and housing investigator. Tele-rent and housing investigator recommended transfer for higher level of care, given marked transaminitis consistent with R heart failure, along with need for intubation makes management difficult and patient should be transferred to center with cardiology and rent and housing investigator management in person. She was accepted at a higher level facility and transferred shortly after intubation. Meds Home Medications and Allergies Home Medications Medication Instructions Recorded Confirmed Type [HERBAL LOTION] topical PRN PRN ##0 06/16/19 08/27/23 History acetaminophen 325 mg tablet 325 mg PO ONCE PRN 06/15/22 08/27/23 History (Tylenol) baclofen 10 mg tablet 10 mg PO BID for muscle spasm #180 04/04/23 08/27/23 Rx tabs inhalational spacing device #1 ea 05/15/23 08/27/23 Rx (BreatheRite MDI Spacer) acetaminophen 300 mg-codeine 15 mg 1 tab PO Q8H PRN pain #30 tabs 05/25/23 08/27/23 Rx tablet gabapentin 300 mg capsule 600 mg (2 x 300 mg) PO HS #180 caps 06/13/23 08/27/23 Rx (Neurontin) Ventolin HFA 90 mcg/actuation 2 puff inhalation Q4-6H PRN for 08/14/23 08/27/23 Rx aerosol inhaler (albuterol sulfate) wheezing #36 grams fluticasone fur. 100 mcg-umeclid 1 inh inhalation DAILY #60 ea 08/23/23 08/27/23 Rx 62.5 mcg-vilant 25 mcg inhalat.powder (Trelegy Ellipta) oxygen concentrator #1 ea 08/23/23 08/27/23 Rx portable oxygen concentrator #1 ea 08/27/23 08/27/23 Rx Allergies Allergy/AdvReac Type Severity Reaction Status Date / Time diclofenac AdvReac Intermediate Reaction Verified 09/13/23 09:26 as soon as applied. Rash/Burning Sensation NSAIDS (Non-Steroidal AdvReac Intermediate UTI Verified 09/13/23 09:26 Anti-Inflamma [NSAIDS (NON-STEROIDAL ANTI-INFLAMMA] Exam Vital Signs (past 8 hours): - 09/13/23 09:13 09/13/23 09:13 09/13/23 09:15 Pulse Rate 68 79 Respiratory Rate 14 Blood Pressure 139/84 Pulse Oximetry 69 L 42 L Oxygen Delivery Method Oxygen Flow Rate Fraction of Inspired Oxygen 09/13/23 09:30 09/13/23 09:32 09/13/23 09:33 Pulse Rate 74 73 73 Respiratory Rate 13 20 19 Blood Pressure Pulse Oximetry 86 L 88 L Oxygen Delivery Method Nasal Cannula Nasal Cannula Oxygen Flow Rate 6 Fraction of Inspired Oxygen 09/13/23 09:33 09/13/23 09:45 09/13/23 10:00 Pulse Rate 74 Respiratory Rate 18 Blood Pressure 162/87 H 182/98 H Pulse Oximetry 91 Oxygen Delivery Method Oxygen Flow Rate Fraction of Inspired Oxygen 09/13/23 10:00 09/13/23 10:05 09/13/23 10:23 Pulse Rate 73 73 72 Respiratory Rate 22 20 15 Blood Pressure Pulse Oximetry 86 L 88 L 85 L Oxygen Delivery Method Oxygen Flow Rate Fraction of Inspired Oxygen 09/13/23 10:24 09/13/23 10:24 09/13/23 10:30 Pulse Rate 72 69 Respiratory Rate 13 12 Blood Pressure 168/93 H Pulse Oximetry 75 L 88 L Oxygen Delivery Method High Flow Nasal Cannula High Flow Nasal Cannula Oxygen Flow Rate Fraction of Inspired Oxygen 09/13/23 10:30 09/13/23 10:45 09/13/23 11:00 Pulse Rate 72 74 Respiratory Rate 13 14 Blood Pressure 178/94 H Pulse Oximetry 81 L 86 L Oxygen Delivery Method High Flow Nasal Cannula Oxygen Flow Rate 40 Fraction of Inspired Oxygen 09/13/23 11:00 09/13/23 11:15 09/13/23 11:30 Pulse Rate 76 73 Respiratory Rate 16 18 Blood Pressure 174/95 H Pulse Oximetry 81 L 93 Oxygen Delivery Method BiPAP Oxygen Flow Rate Fraction of Inspired Oxygen 09/13/23 11:34 09/13/23 11:34 09/13/23 11:37 Pulse Rate 71 Respiratory Rate 20 Blood Pressure 173/96 H 173/96 H Pulse Oximetry 94 Oxygen Delivery Method Oxygen Flow Rate Fraction of Inspired Oxygen 09/13/23 11:45 09/13/23 12:00 09/13/23 12:06 Pulse Rate 71 69 68 Respiratory Rate 21 24 18 Blood Pressure Pulse Oximetry 92 86 L Oxygen Delivery Method Oxygen Flow Rate Fraction of Inspired Oxygen 09/13/23 12:06 09/13/23 12:15 09/13/23 12:30 Pulse Rate 69 70 Respiratory Rate 21 24 Blood Pressure 167/94 H Pulse Oximetry 86 L 84 L Oxygen Delivery Method Oxygen Flow Rate Fraction of Inspired Oxygen 09/13/23 12:30 09/13/23 12:45 09/13/23 13:00 Pulse Rate 69 69 Respiratory Rate 16 22 Blood Pressure 169/92 H Pulse Oximetry 81 L 86 L Oxygen Delivery Method BiPAP Oxygen Flow Rate Fraction of Inspired Oxygen 09/13/23 13:15 09/13/23 13:17 09/13/23 13:17 Pulse Rate 70 71 Respiratory Rate 20 13 Blood Pressure 153/81 H Pulse Oximetry 72 L 59 L Oxygen Delivery Method Oxygen Flow Rate Fraction of Inspired Oxygen 09/13/23 13:21 09/13/23 13:21 09/13/23 13:30 Pulse Rate 70 74 Respiratory Rate 24 15 Blood Pressure 149/85 H Pulse Oximetry 83 L 69 L Oxygen Delivery Method Oxygen Flow Rate Fraction of Inspired Oxygen 09/13/23 13:30 09/13/23 13:45 09/13/23 14:00 Pulse Rate 75 Respiratory Rate 22 Blood Pressure 147/89 H 163/98 H Pulse Oximetry 85 L Oxygen Delivery Method Oxygen Flow Rate Fraction of Inspired Oxygen 09/13/23 14:00 09/13/23 14:05 09/13/23 14:08 Pulse Rate 70 71 Respiratory Rate 20 21 Blood Pressure 163/98 H Pulse Oximetry 87 L 84 L Oxygen Delivery Method Oxygen Flow Rate Fraction of Inspired Oxygen 09/13/23 14:10 09/13/23 14:15 09/13/23 14:20 Pulse Rate 75 75 74 Respiratory Rate 18 21 27 H Blood Pressure Pulse Oximetry 74 L 81 L 87 L Oxygen Delivery Method Oxygen Flow Rate Fraction of Inspired Oxygen 09/13/23 14:25 09/13/23 14:30 09/13/23 14:31 Pulse Rate 73 72 73 Respiratory Rate 24 24 44 H Blood Pressure Pulse Oximetry 90 L 84 L 82 L Oxygen Delivery Method Oxygen Flow Rate Fraction of Inspired Oxygen 09/13/23 14:31 09/13/23 14:35 09/13/23 14:40 Pulse Rate 73 71 Respiratory Rate 24 21 Blood Pressure 171/76 H Pulse Oximetry 76 L 78 L Oxygen Delivery Method Oxygen Flow Rate Fraction of Inspired Oxygen 09/13/23 14:45 09/13/23 14:50 09/13/23 14:55 Pulse Rate 69 70 71 Respiratory Rate 33 H 22 32 H Blood Pressure Pulse Oximetry 84 L 80 L 78 L Oxygen Delivery Method Oxygen Flow Rate Fraction of Inspired Oxygen 09/13/23 14:59 09/13/23 14:59 09/13/23 15:00 Pulse Rate 70 69 Respiratory Rate 19 14 Blood Pressure 144/85 H Pulse Oximetry 82 L 81 L Oxygen Delivery Method Oxygen Flow Rate Fraction of Inspired Oxygen 09/13/23 15:00 09/13/23 15:05 09/13/23 15:05 Pulse Rate 71 Respiratory Rate 11 L Blood Pressure 154/90 H 113/73 Pulse Oximetry 99 Oxygen Delivery Method Oxygen Flow Rate Fraction of Inspired Oxygen 09/13/23 15:10 09/13/23 15:10 09/13/23 15:15 Pulse Rate 67 Respiratory Rate 16 Blood Pressure 107/67 98/62 Pulse Oximetry 97 Oxygen Delivery Method Oxygen Flow Rate Fraction of Inspired Oxygen 09/13/23 15:15 09/13/23 15:20 09/13/23 15:20 Pulse Rate 64 62 Respiratory Rate 24 24 Blood Pressure 91/57 L Pulse Oximetry 93 89 L Oxygen Delivery Method Oxygen Flow Rate Fraction of Inspired Oxygen 09/13/23 15:25 09/13/23 15:25 09/13/23 15:30 Pulse Rate 61 67 Respiratory Rate 24 24 Blood Pressure 90/56 L Pulse Oximetry 90 L 89 L Oxygen Delivery Method Oxygen Flow Rate Fraction of Inspired Oxygen 09/13/23 15:30 09/13/23 15:35 09/13/23 15:35 Pulse Rate 70 Respiratory Rate 22 Blood Pressure 140/80 150/84 H Pulse Oximetry 87 L Oxygen Delivery Method Oxygen Flow Rate Fraction of Inspired Oxygen 09/13/23 15:40 09/13/23 15:40 09/13/23 15:45 Pulse Rate 67 67 Respiratory Rate 24 24 Blood Pressure 140/82 Pulse Oximetry 88 L 89 L Oxygen Delivery Method Oxygen Flow Rate Fraction of Inspired Oxygen 09/13/23 15:45 09/13/23 15:50 09/13/23 15:50 Pulse Rate 67 Respiratory Rate 24 Blood Pressure 140/86 148/87 H Pulse Oximetry 88 L Oxygen Delivery Method Oxygen Flow Rate Fraction of Inspired Oxygen 09/13/23 15:55 09/13/23 15:55 09/13/23 16:00 Pulse Rate 68 67 Respiratory Rate 24 24 Blood Pressure 150/91 H Pulse Oximetry 88 L 90 L Oxygen Delivery Method Oxygen Flow Rate Fraction of Inspired Oxygen 09/13/23 16:00 09/13/23 16:05 09/13/23 16:05 Pulse Rate 66 Respiratory Rate 24 Blood Pressure 148/90 H 149/90 H Pulse Oximetry 87 L Oxygen Delivery Method Oxygen Flow Rate Fraction of Inspired Oxygen 09/13/23 16:10 09/13/23 16:10 09/13/23 16:15 Pulse Rate 65 Respiratory Rate 24 Blood Pressure 143/83 H 135/82 Pulse Oximetry 89 L Oxygen Delivery Method Oxygen Flow Rate Fraction of Inspired Oxygen 09/13/23 16:15 09/13/23 16:20 09/13/23 16:20 Pulse Rate 64 62 Respiratory Rate 24 24 Blood Pressure 132/82 Pulse Oximetry 90 L 90 L Oxygen Delivery Method Oxygen Flow Rate Fraction of Inspired Oxygen 09/13/23 16:25 09/13/23 16:25 09/13/23 16:30 Pulse Rate 63 61 Respiratory Rate 24 24 Blood Pressure 135/84 Pulse Oximetry 86 L 90 L Oxygen Delivery Method Mechanical Ventilation Oxygen Flow Rate Fraction of Inspired Oxygen 09/13/23 16:30 09/13/23 16:35 09/13/23 16:35 Pulse Rate 60 Respiratory Rate 24 Blood Pressure 122/76 121/76 Pulse Oximetry 89 L Oxygen Delivery Method Oxygen Flow Rate Fraction of Inspired Oxygen 09/13/23 16:40 09/13/23 16:40 09/13/23 16:45 Pulse Rate 60 Respiratory Rate 24 Blood Pressure 128/77 131/81 Pulse Oximetry 89 L Oxygen Delivery Method Oxygen Flow Rate Fraction of Inspired Oxygen 09/13/23 16:45 09/13/23 16:50 09/13/23 16:50 Pulse Rate 60 60 Respiratory Rate 24 24 Blood Pressure 126/80 Pulse Oximetry 90 L 90 L Oxygen Delivery Method Oxygen Flow Rate Fraction of Inspired Oxygen 09/13/23 16:55 09/13/23 16:55 09/13/23 17:00 Pulse Rate 60 60 Respiratory Rate 24 24 Blood Pressure 131/82 Pulse Oximetry 91 90 L Oxygen Delivery Method Oxygen Flow Rate Fraction of Inspired Oxygen 09/13/23 17:00 Pulse Rate Respiratory Rate Blood Pressure 140/83 Pulse Oximetry Oxygen Delivery Method Oxygen Flow Rate Fraction of Inspired Oxygen Fraction of Inspired Oxygen 30 Oxygen Delivery Method Mechanical Ventilation Oxygen Flow Rate 40 Narrative Exam Narrative: Gen: ill appearing female, short of breath, intermittently falling asleep CV: RRR no m/r/g Pulm: diminished breath sound b/l lungs, slight crackles at the base Ext: trace to no edema b/l Objective Labs 09/13/23 09:23 09/13/23 12:05 Labs: Laboratory Results - last 24 hr 09/13/23 09/13/23 09/13/23 09:23 11:06 12:03 WBC 6.9 RBC 5.41 H Hgb 16.9 H Hct 53.9 H MCV 99.7 MCH 31.3 MCHC 31.4 RDW 14.2 Plt Count 177 Neut % (Auto) 87.1 H Lymph % (Auto) 3.3 L [place] % (Auto) 9.5 Eos % (Auto) 0.0 L Baso % (Auto) 0.1 Neut # (Auto) 6000 Lymph # (Auto) 200 L [place] # (Auto) 700 Eos # (Auto) 0 Baso # (Auto) 0 PT 18.4 H INR 1.6 H APTT 30 D-Dimer 65224 H ABG Sample Site Right brachial ABG pH 7.23 L* ABG pCO2 90.5 H* ABG pO2 73 L ABG HCO3 38 H ABG Total CO2 41 H ABG O2 Saturation 90 L ABG Base Excess 11.0 H FiO2 60 Sodium 136 L Potassium 5.3 H Chloride 94 L Carbon Dioxide 38 H BUN 36 H Creatinine 1.15 H Estimated GFR 54 L BUN/Creatinine Ratio 31.3 H Glucose 131 H Calcium 8.2 L Total Bilirubin 1.5 H AST 1283 H ALT 1046 H Alkaline Phosphatase 101 Total Creatine Kinase 102 Troponin I 0.130 H* NT-Pro-B Natriuret Pep 15378 H Total Protein 6.5 Albumin 3.7 Globulin 2.8 Albumin/Globulin Ratio 1.3 Lipase 23 Procalcitonin 0.546 H Urine Color Urine Appearance Urine pH Ur Specific [place] Urine Protein Urine Glucose (UA) Urine Ketones Urine Occult Blood Urine Nitrate Urine Bilirubin Urine Urobilinogen Ur Leukocyte Esterase Urine RBC 0-1/hpf Urine WBC None seen Ur Squamous Epith Cells None seen Amorphous Sediment Urine Bacteria None seen Hyaline Casts 1-5/lpf Ur Culture Indicated? Cult not indicated Vol Urine Centrifuged 10ml (spun) Acetaminophen < 10 09/13/23 09/13/23 09/13/23 12:05 12:35 13:57 WBC RBC Hgb Hct MCV MCH MCHC RDW Plt Count Neut % (Auto) Lymph % (Auto) [place] % (Auto) Eos % (Auto) Baso % (Auto) Neut # (Auto) Lymph # (Auto) [place] # (Auto) Eos # (Auto) Baso # (Auto) PT INR APTT D-Dimer ABG Sample Site Right radial Right brachial ABG pH 7.29 L* 7.32 L ABG pCO2 80.2 H* 84.6 H* ABG pO2 53 L 67 L ABG HCO3 39 H 43 H ABG Total CO2 41 H 46 H ABG O2 Saturation 81 L* 90 L ABG Base Excess 12.0 H 17.0 H FiO2 30 30 Sodium 136 L Potassium 4.4 Chloride 96 L Carbon Dioxide 36 H BUN 35 H Creatinine 0.86 Estimated GFR > 60 BUN/Creatinine Ratio 40.7 H Glucose 116 H Calcium 7.3 L Total Bilirubin 1.1 AST 1856 H ALT 1501 H Alkaline Phosphatase 79 Total Creatine Kinase Troponin I 0.139 H* NT-Pro-B Natriuret Pep Total Protein 5.7 L Albumin 3.1 L Globulin 2.6 Albumin/Globulin Ratio 1.2 Lipase Procalcitonin Urine Color Urine Appearance Urine pH Ur Specific [place] Urine Protein Urine Glucose (UA) Urine Ketones Urine Occult Blood Urine Nitrate Urine Bilirubin Urine Urobilinogen Ur Leukocyte Esterase Urine RBC Urine WBC Ur Squamous Epith Cells Amorphous Sediment Urine Bacteria Hyaline Casts Ur Culture Indicated? Vol Urine Centrifuged Acetaminophen 09/13/23 15:41 WBC RBC Hgb Hct MCV MCH MCHC RDW Plt Count Neut % (Auto) Lymph % (Auto) [place] % (Auto) Eos % (Auto) Baso % (Auto) Neut # (Auto) Lymph # (Auto) [place] # (Auto) Eos # (Auto) Baso # (Auto) PT INR APTT D-Dimer ABG Sample Site ABG pH ABG pCO2 ABG pO2 ABG HCO3 ABG Total CO2 ABG O2 Saturation ABG Base Excess FiO2 Sodium Potassium Chloride Carbon Dioxide BUN Creatinine Estimated GFR BUN/Creatinine Ratio Glucose Calcium Total Bilirubin AST ALT Alkaline Phosphatase Total Creatine Kinase Troponin I NT-Pro-B Natriuret Pep Total Protein Albumin Globulin Albumin/Globulin Ratio Lipase Procalcitonin Urine Color Yellow Urine Appearance Clear Urine pH 5.5 Ur Specific [place] 1.010 Urine Protein Trace H Urine Glucose (UA) Negative Urine Ketones Negative Urine Occult Blood 1+ H Urine Nitrate Negative Urine Bilirubin Negative Urine Urobilinogen 0.2 Ur Leukocyte Esterase Negative Urine RBC None seen Urine WBC None seen Ur Squamous Epith Cells None seen Amorphous Sediment 1+ Urine Bacteria None seen Hyaline Casts 5-10/lpf Ur Culture Indicated? Cult not indicated Vol Urine Centrifuged 10ml (spun) Acetaminophen [facility] Medical History (Updated 09/13/23 @ 13:08 by Florence Holland DO) Encounter for initial annual wellness visit (AWV) in Medicare patient COVID-19 Malnutrition Cervical radiculopathy Facet arthropathy, cervical Cervical stenosis of spinal canal Loose, teeth Wears glasses Neuropathy Nephritis Constipation Neck pain Shoulder pain Arthritis Restless leg syndrome (Unknown) Osteoarthritis (Unknown) Degenerative disc disease, lumbar (Unknown) Migraines (Unknown) Asthma (Unknown) Cervical spine disease (Unknown) Surgical History H/O arthroscopy of shoulder (~1999) Status post appendectomy History of carpal tunnel repair Status post tubal ligation Family History Father No problems noted. Mother No problems noted. Social History household members: spouse Tobacco & Substance Use Smoking Status: Former smoker (2 Cigarettes since Covid 05/2022. ) Tobacco: How many years used: 40 second hand exposure: No alcohol intake: former substance use type: marijuana Assessment & Plan Assessment & Plan narrative: 1. Acute on chronic hypoxemic and hypercapnic respiratory failure 2. Acute, possibly on chronic, right heart failure (2ndary to COPD/emphysema) with massive transaminitis 3. Myocardial injury 4. Chronic obstructive lung disease Patient was transferred after extensive management with the ER provider of the above conditions to a higher level facility. Code: Full after GOC discussion, surrogate is patient's spouse I have utilized all available immediate resources to obtain, update, or review the patient's current medications. Dispo: transferred to outside hospital. I spent 30 minutes providing critical care management this patient. This excludes time spent in performing separately billed procedures. Additional history obtained via discussions with the ER provider. These discussions contributed to the creation of the above assessment and plan. I have reviewed patient's presenting documentation, labs, and imaging personally.
--- NOTE | 2023-09-13 17:21 | PC.NURSE ---
pt was intubated with a 21 cm to lip, 7.5 oett. without difficulty.
[2023-09-13 17:34] LABS: Blood Gas Collection Site Right Brachial; Fractionated Inspired Oxygen 30; HCO3 ABG 37 mmol/L (23-27); Oxygen Saturation ABG 92 % (95-100); PCO2 ABG 42.2 mmHg (35-45); PO2 ABG 57 mmHg (80-100); TCO2 ABG 38 mmol/L (23-27); pH ABG 7.55 (7.35-7.45)
--- NOTE | 2023-09-13 17:59 | PC.NURSE ---
placement confirmed by auscultation.
== END 2023-09-13 19:30 | disposition short-term general hospital (02) | DRG 208 ==
LOC: ED 12:53 → AC 13:03 → ICU 14:05 → AC 17:11
PROVIDERS: Admitting Provider Internal Medicine; Emergency Provider Emergency Medicine; PCP Family Medicine; Referring Provider Emergency Medicine; Visit Provider Internal Medicine
DX: J96.22 Acute and chronic respiratory failure with hypercapnia (principal); I5A Non-ischemic myocardial injury (non-traumatic); J96.21 Acute and chronic respiratory failure with hypoxia; I50.813 Acute on chronic right heart failure; J43.9 Emphysema, unspecified; R74.01 Elevation of levels of liver transaminase levels; Z87.891 Personal history of nicotine dependence
CPT/HCPCS: 31500; 36415; 36600; 71045; 71275; 74177; 76705; 80053; 80329; 81001; 81003; 81015; 82550; 82805; 83690; 83880; 84145; 84484; 85025; 85379; 85610; 85730; 87040; 93005; 94002; 94640; 94660; 96365; 96367; 96375; 99285; 99291; 99292; G0480; J1940; J2543; J2704; J2919; J3010; Q9967

== ENCOUNTER → 2023-10-08 10:22 | Outpatient (CLI) | payer OTHER, SELFPAY ==
[2023-09-13 16:36] VITALS: PULSE 60; RESP 24; O2SAT 89
[2023-10-08 11:49] LABS: BUN Creatinine Ratio 34.4 (6-22); Blood Urea Nitrogen 21 mg/dL (7-17); Calcium 9.3 mg/dL (8.4-10.2); Chloride 94 mmol/L (98-107); Estimated Glomerular Filt Rate > 60 mL/min (>60); Glucose 80 mg/dL (80-110); HEMOLYSIS < 15 (0-50); Potassium 4.6 mmol/L (3.4-5.1); Sodium 138 mmol/L (137-145)
[2023-10-08 12:18] LABS: Carbon Dioxide 43 mmol/L (22-32)
== END ==
PROVIDERS: PCP Family Medicine; Referring Provider Internal Medicine Advanced Heart Failure and Transplant Cardiology; Visit Provider Internal Medicine Advanced Heart Failure and Transplant Cardiology
DX: I50.9 Heart failure, unspecified (principal)
CPT/HCPCS: 36415; 80048

== ENCOUNTER → 2023-11-03 11:27 | Outpatient (CLI) | payer OTHER, SELFPAY ==
[2023-09-13 16:36] VITALS: PULSE 60; RESP 24; O2SAT 89
[2023-11-03 14:17] LABS: Alanine Aminotransferase 46 IU/L (<35); Albumin 3.7 g/dL (3.5-5.0); Albumin Globulin Ratio 1.2 (1.0-2.8); Alkaline Phosphatase 66 U/L (38-126); Aspartate Aminotransferase 45 IU/L (14-36); BUN Creatinine Ratio 36.2 (6-22); Bilirubin Total 0.6 mg/dL (0.2-1.3); Blood Urea Nitrogen 21 mg/dL (7-17); Calcium 8.8 mg/dL (8.4-10.2); Chloride 97 mmol/L (98-107); Estimated Glomerular Filt Rate > 60 mL/min (>60); Glucose 110 mg/dL (80-110); HEMOLYSIS < 15 (0-50); Potassium 3.9 mmol/L (3.4-5.1); Sodium 140 mmol/L (137-145); Total Protein 6.7 g/dL (6.3-8.2)
[2023-11-03 14:46] LABS: Carbon Dioxide 40 mmol/L (22-32)
[2023-11-05 17:10] LABS: HIV 1 & 2 Ab/Ag 4th Gen Combo NEGATIVE (NEGATIVE)
== END ==
PROVIDERS: PCP Family Medicine; Referring Provider Internal Medicine; Visit Provider Internal Medicine
DX: R79.89 Other specified abnormal findings of blood chemistry (principal)
CPT/HCPCS: 36415; 80053; 86038; 86225; 86430; 87389

== ENCOUNTER → 2023-11-07 13:02 | Outpatient (CLI) | payer OTHER, SELFPAY ==
[2023-09-13 16:36] VITALS: PULSE 60; RESP 24; O2SAT 89
--- NOTE | 2023-11-07 13:05 | DI.RAD.S_ITS ---
PROCEDURE: XR CHEST 2V INDICATIONS: HYPERTENSION TECHNIQUE: 2 views of the chest were acquired. COMPARISON: [facility], CR, XR CHEST 1V, 09/13/2023, 15:05. [facility], CR, XR CHEST 1V, 09/13/2023, 9:56. FINDINGS: Surgical changes and devices: None. Lungs and pleura: Lungs are clear. No pleural effusions or pneumothorax. Hyperinflation. Mediastinum: Mediastinal contours are normal. Heart size is normal. Bones and chest wall: No suspicious bony abnormalities. Soft tissues appear unremarkable. IMPRESSION: No acute cardiopulmonary abnormality is seen. Dictated by: Rodrigo Ga M.D. on 11/07/2023 at 16:06 Approved by: Rodrigo Ga M.D. on 11/07/2023 at 16:07
== END ==
PROVIDERS: PCP Family Medicine; Referring Provider Internal Medicine; Visit Provider Internal Medicine
DX: I27.20 Pulmonary hypertension, unspecified (principal)
CPT/HCPCS: 71046

== ENCOUNTER → 2024-05-19 11:29 | Outpatient (CLI) | payer MEDICARE, SELFPAY ==
[2023-12-18 12:00] VITALS: PULSE 60; RESP 24; O2SAT 89
[2024-05-19 12:16] LABS: BUN Creatinine Ratio 35.6 (6-22); Blood Urea Nitrogen 21 mg/dL (7-17); Calcium 9.3 mg/dL (8.4-10.2); Carbon Dioxide 38 mmol/L (22-32); Chloride 96 mmol/L (98-107); Estimated Glomerular Filt Rate > 60 mL/min (>60); Glucose 90 mg/dL (80-110); HEMOLYSIS < 15 (0-50); Potassium 3.8 mmol/L (3.4-5.1); Sodium 138 mmol/L (137-145)
== END ==
PROVIDERS: PCP Family Medicine; Referring Provider Family Medicine; Visit Provider Family Medicine
DX: I50.810 Right heart failure, unspecified (principal)
CPT/HCPCS: 36415; 80048

== ENCOUNTER 2024-07-07 10:15 | Outpatient (RCR) | payer MEDICARE, OTHER, SELFPAY ==
[2023-12-18 12:00] VITALS: PULSE 60; RESP 24; O2SAT 89
--- NOTE | 2024-02-21 12:36 | RT ---
pt is struggling with mucus clearing extra education given
== END 2024-07-07 12:15 ==
LOC: PUL 10:15
PROVIDERS: PCP Family Medicine; Referring Provider Internal Medicine; Visit Provider Internal Medicine
DX: J43.9 Emphysema, unspecified (principal); J96.11 Chronic respiratory failure with hypoxia
CPT/HCPCS: G0237; G0238

== ENCOUNTER → 2025-01-01 11:33 | Outpatient (CLI) | payer MEDICARE, SELFPAY ==
[2023-12-18 12:00] VITALS: PULSE 60; RESP 24; O2SAT 89
[2025-01-01 12:06] LABS: Hematocrit 39.6 % (36-46); Hemoglobin 12.9 g/dL (12.0-16.0); Mean Corpuscular HGB Conc 32.6 % (30-36); Mean Corpuscular Hemoglobin 31.4 PG (26-34); Mean Corpuscular Volume 96.5 fL (80-100); Platelet Count 213 X10^3/uL (150-400)
[2025-01-01 13:04] LABS: Blood Urea Nitrogen 18 mg/dL (7-17); Calcium 9.2 mg/dL (8.4-10.2); Chloride 94 mmol/L (98-107); Estimated Glomerular Filt Rate > 60 mL/min (>60); Glucose 98 mg/dL (70-99); HEMOLYSIS 32 (0-50); Potassium 3.7 mmol/L (3.4-5.1); Sodium 140 mmol/L (137-145)
[2025-01-01 14:45] LABS: Carbon Dioxide 37 mmol/L (22-32)
[2025-01-01 15:40] LABS: Hep C Virus Ab w/Reflex Quant NEGATIVE s/c (NEGATIVE)
== END ==
PROVIDERS: PCP Family Medicine; Referring Provider Family Medicine; Visit Provider Family Medicine
DX: I50.812 Chronic right heart failure (principal); J43.8 Other emphysema; I10 Essential (primary) hypertension
CPT/HCPCS: 36415; 80048; 85027; 86803

== ENCOUNTER → 2025-01-06 13:52 | Outpatient (CLI) | payer MEDICARE, SELFPAY ==
[2023-12-18 12:00] VITALS: PULSE 60; RESP 24; O2SAT 89
--- NOTE | 2025-01-06 13:55 | DI.MG.S_ITS ---
MM screening mammo BI: 01/06/2025. BI-RADS: 2 CLINICAL: 64-year old female for bilateral screening mammogram. Tyrer-Cuzick lifetime risk of 3.9%. No personal or first-degree family history of breast cancer. Current reported family history of breast cancer: maternal aunt and second maternal aunt. The patient had a prior left breast biopsy. PRIOR EXAMS New Baseline. MAMMOGRAPHY TECHNIQUE: 2D and 3D (tomosynthesis) digital mammographic views obtained, with additional images as needed for full coverage. Current study was also evaluated with a Computer Aided Detection (CAD) system. DENSITY B. There are scattered areas of fibroglandular density. MAMMOGRAPHY FINDINGS Right: No suspicious mass, asymmetry, microcalcification, or other abnormality seen. Left: Benign-appearing post-surgical changes noted on the left. There are no suspicious masses, calcifications, or other findings in the breast. IMPRESSION: Right * No evidence of malignancy. Left * No evidence of malignancy with benign findings. RECOMMENDATIONS Bilateral * Annual screening mammography. OVERALL ASSESSMENT CATEGORY BI-RADS-2: Benign. The [employer] recommends annual screening mammography beginning at age 40 for women with average risk of breast cancer. ELECTRONICALLY SIGNED: Yesi Pryor M.D. on 01/10/2025 at 02:45:42 PM PT Interpreting Station ID: [id number]
--- NOTE | 2025-01-06 13:55 | DI.RAD.S_ITS ---
PROCEDURE: XR DEXA AXIAL SKELETON INDICATIONS: screening for disorders of bone density and structure COMPARISON: None. FINDINGS: Lumbar Spine: Bone mineral density 0.975 g/cm2, T score -0.7. Left Femoral Neck: Bone mineral density 0.587 g/cm2, T score -2.4. Left Hip: Bone mineral density 0.667 g/cm2, T score -2.3. Fracture Risk Calculation (when applicable): 10-year fracture risk of a major osteoporotic fracture 11 percent and of a hip fracture 2.2 percent. (T score greater or equal to -1.0 to: NORMAL) (T score from -1.1 to -2.4: OSTEOPENIA) (T score less than or equal to -2.5: OSTEOPOROSIS) IMPRESSION: Osteopenia--- recommend repeat DEXA in 2- 3 years for reassessment. Follow-up guidelines as follows: Osteoporosis: Consider a repeat DEXA and Vertebral Fracture Assessment (VFA) exam in 2 years or sooner if medically necessary, to reassess this patient's status. Osteopenia: Consider a repeat DEXA in 2-3 years to reassess this patient's status, or if there is a new clinical indication. Normal: Consider a repeat DEXA in 5 years or sooner, or if there is a new clinical indication. All treatment decisions require clinical judgment and consideration of individual patient factors, including patient preferences, comorbidities, previous drug use, risk factors not captured in the FRAX model (e.g., frailty, falls, vitamin D deficiency, increased bone turnover, interval significant decline in bone density ) and possible under- or over-estimation of fracture risk by FRAX. In addition, the NOF Guide recommends that FDA-approved medical therapies be considered in postmenopausal women and men age >= 50 years with a: * Hip or vertebral (clinical or morphometric) fracture * T-score of <=-2.5 at the spine or hip * Ten-year fracture probability by FRAX of >= 3% for hip fracture or >=20% for major osteoporotic fracture. Dictated by: Sheng Yang M.D. on 01/06/2025 at 22:03 Approved by: Sheng Yang M.D. on 01/06/2025 at 22:04
== END ==
LOC: MAMMO 13:54
PROVIDERS: PCP Family Medicine; Referring Provider Family Medicine; Visit Provider Family Medicine
DX: Z12.31 Encounter for screening mammogram for malignant neoplasm of breast (principal); Z80.3 Family history of malignant neoplasm of breast; M85.89 Other specified disorders of bone density and structure, multiple sites
CPT/HCPCS: 77063; 77067; 77080

== ENCOUNTER → 2025-01-08 12:52 | Outpatient (CLI) | payer MEDICARE, SELFPAY ==
[2023-12-18 12:00] VITALS: PULSE 60; RESP 24; O2SAT 89
--- NOTE | 2025-01-08 12:54 | DI.CT.S_ITS ---
PROCEDURE: CT LUNG LOW DOSE SCREENING INDICATIONS: lung cx screening TECHNIQUE: Noncontrast 2.0-2.5 mm thick sections acquired from the pulmonary apices to the posterior costophrenic angles. 7 mm thick axial MIP, and 5 mm coronal and sagittal reformats were then acquired. For radiation dose reduction, the following was used: automated exposure control, adjustment of mA and/or kV according to patient size. COMPARISON: [facility], CT, CT ANGIO CHEST PE PROTOCOL, 09/13/2023, 10:19. FINDINGS: Image quality: Diagnostic. Lower Neck: No enlarged lymph nodes. Thyroid: No thyroid nodules which require sonographic follow up, per consensus guidelines. Axillae: No enlarged lymph nodes. Chest Wall: Small subcutaneous nodule at the right sternum measuring 0.7 cm, (2/). Possibly a sebaceous cysts. Bones: No suspicious osseous lesion. Lungs and Pleura: No pneumothorax or pleural effusions. Mild emphysematous change. No consolidation or suspicious nodules. Heart: Heart size is normal. Moderate coronary artery calcifications. No pericardial effusion. Thoracic Vessels: The aorta and pulmonary arteries demonstrate normal size. Mediastinum and Jeri: No enlarged lymph nodes. Esophagus: No wall thickening. No hiatal hernia. Upper Abdomen: Visualized upper abdomen solid organs and bowel loops appear normal. IMPRESSION: No suspicious pulmonary nodules. LUNG-RADS 1; continued annual screening, if eligible. Clinically Significant Non-pulmonary Findings: Moderate coronary artery calcifications. Dictated by: Sherif Montez M.D. on 01/08/2025 at 17:19 Approved by: Sherfi Montez M.D. on 01/08/2025 at 17:22
== END ==
PROVIDERS: PCP Family Medicine; Referring Provider Family Medicine; Visit Provider Family Medicine
DX: Z12.2 Encounter for screening for malignant neoplasm of respiratory organs (principal); Z87.891 Personal history of nicotine dependence; I25.10 Atherosclerotic heart disease of native coronary artery without angina pectoris
CPT/HCPCS: 71271

== ENCOUNTER → 2025-02-06 14:26 | Outpatient (CLI) | payer MEDICARE, SELFPAY ==
[2023-12-18 12:00] VITALS: PULSE 60; RESP 24; O2SAT 89
[2025-02-06 15:46] LABS: Alanine Aminotransferase 18 IU/L (<35); Albumin 4.3 g/dL (3.5-5.0); Albumin Globulin Ratio 1.3 (1.0-2.8); Alkaline Phosphatase 68 U/L (38-126); Blood Urea Nitrogen 17 mg/dL (7-17); Calcium 9.4 mg/dL (8.4-10.2); Chloride 95 mmol/L (98-107); Cholesterol 234 mg/dL (140-199); Estimated Glomerular Filt Rate > 60 mL/min (>60); Globulin 3.2 g/dL (1.7-4.1); Glucose 95 mg/dL (70-99); HDL Cholesterol 88 mg/dL (40-60); HEMOLYSIS < 15 (0-50); Potassium 4.4 mmol/L (3.4-5.1); Sodium 138 mmol/L (137-145); Total Protein 7.5 g/dL (6.3-8.2); Triglycerides 142 mg/dL (35-150)
[2025-02-06 15:59] LABS: Carbon Dioxide 41 mmol/L (22-32)
== END ==
PROVIDERS: PCP Family Medicine; Referring Provider Family Medicine; Visit Provider Family Medicine
DX: Z00.00 Encounter for general adult medical examination without abnormal findings (principal); E78.5 Hyperlipidemia, unspecified
CPT/HCPCS: 36415; 80053; 80061

== ENCOUNTER → 2025-02-12 12:14 | Outpatient (CLI) | payer MEDICARE, SELFPAY ==
[2023-12-18 12:00] VITALS: PULSE 60; RESP 24; O2SAT 89
[2025-02-12 13:11] LABS: Blood Urea Nitrogen 18 mg/dL (7-17); Calcium 9.4 mg/dL (8.4-10.2); Chloride 94 mmol/L (98-107); Estimated Glomerular Filt Rate > 60 mL/min (>60); Glucose 136 mg/dL (70-99); Potassium 4.4 mmol/L (3.4-5.1); Sodium 140 mmol/L (137-145)
[2025-02-12 13:43] LABS: Carbon Dioxide 37 mmol/L (22-32); HEMOLYSIS 19 (0-50)
== END ==
PROVIDERS: PCP Family Medicine; Referring Provider Family Medicine; Visit Provider Family Medicine
DX: J43.8 Other emphysema (principal)
CPT/HCPCS: 36415; 80048